=== PATIENT | female | born 1985 | race Caucasian/White ===

== ENCOUNTER 2016-10-20 00:47 | Inpatient (IN) | payer OTHER ==
[~2016-10-20] VITALS: Ht 162.6 cm; Wt 107.0 kg
[~2016-10-20 00:47] MED LIST: ACET30TA PO; DESOTAB2 PO; DIPH25TA24 PO; IBUP1CAP9 PO; SERT-234 PO
[2016-10-20] MEDS ORDERED: OPTIRAY 320 IV PRN (01:15)
[2016-10-20 01:26] LABS: BASO % 0.4 %; BASO ABS # 0.04 K/uL (0-0.2); COMPLETE YES; EOS % 1.7 %; HEMATOCRIT 38.9 % (37-47); IG% 0.1 %; LYMPH % 36.4 %; LYMPH ABS # 3.74 K/uL (1.2-3.4); MEAN CELL VOLUME 84.6 fL (80-100); MEAN CORPUSCULAR HEMOGLOBIN 29.1 pg (25-34); MEAN CORPUSCULAR HGB CONC 34.4 g/dl (32-36); MEAN PLATELET VOLUME 9.8 fL (7.4-10.4); MONO % 9.4 %; PLATELET COUNT 308 K/uL (130-400); WHITE BLOOD COUNT 10.28 K/uL (4.8-10.8)
[2016-10-20 01:41] LABS: INR 0.9 (0.9-1.1)
[2016-10-20 01:44] LABS: ALT/SGPT 24 U/L (12-78); AST/SGOT 15 U/L (15-37); BLOOD UREA NITROGEN 8 mg/dl (7-18); BUN/CREATININE RATIO 9.1 (10-20); CALCIUM 8.2 mg/dl (8.5-10.1); CARBON DIOXIDE 21 mmol/L (21-32); CHLORIDE 110 mmol/L (98-107); CREATININE 0.85 mg/dl (0.60-1.20); GLUCOSE 101 mg/dl (70-99); POTASSIUM 3.4 mmol/L (3.5-5.1); SODIUM 143 mmol/L (136-145)
[2016-10-20 01:46] LABS: PREG INTERNAL NEGATIVE QC NEG CLEAR BACKGROUND; PREG INTERNAL POSITIVE QC POS CONTROL LINE
[2016-10-20 01:56] LABS: ALKALINE PHOSPHATASE 90 U/L (45-117)
--- NOTE | 2016-10-20 02:14 | EMERGENCY ROOM VISIT NOTE ---
History First contact with patient: 00:54 Chief Complaint: CHEST PAIN Stated Complaint: LFT SIDE CHEST PAIN,SHOULDER AND JAW PAIN Nursing Triage Summary: Patient reports "I felt like something was stuck in my chest yesterday and I had pain in my left arm today and my jaw. It's gotten much worse in the past hour." Patient is on control, was recently on a three hour train ride, Patient has 9/10 chest pain radiating to left arm and jaw. Patient rr rapid and breaths shallow. History of Present Illness The patient is a 30 year old female who presents to the Emergency Room with complaints of chest pain which began one day ago. The patient states that she felt like something was "stuck in her chest." She initially thought it may be due to indigestion but states the symptoms have worsened. She is having difficulty taking a deep breath. She states that she takes control pills. Prior to the onset of symptoms, she had a train ride to [facility]. She states that the symptoms worsened today after taking the train home. She denies any history or family history of blood clots or clotting disorders. She reports a history of PVCs but denies any other cardiac history. She states that she has had palpitations which feel worse than her typical PVCs. She denies any nausea, vomiting, abdominal pain, leg pain or swelling. She has not taken any medications for symptoms. Review of Systems A complete 10 point review of systems was reviewed with the patient with pertinent positives and negatives as per history of present illness. All else were negative. Past Medical/Surgical History Medical Problems: (1) Anxiety (2) Endometriosis (3) IBD (inflammatory bowel disease) Social History Smoking Status: Never Smoker Current/Historical Medications Scheduled Desogestrel & Ethinyl Estradio (Reclipsen), 1 TAB PO DAILY Diphenhydramine Hcl (Benadryl Allergy), 25 MG PO DAILY Ibuprofen (Ibuprofen), 600 MG PO DAILY Sertraline (Zoloft), 150 MG PO DAILY Allergies Coded Allergies: Oxycodone (Unverified Allergy, Unknown, ITCHINESS, 10/20/16) Sulfa Antibiotics (Unverified Allergy, Unknown, SWELLING, 10/20/16) Morphine (Unverified Adverse Reaction, Unknown, HYPOTENSION, 10/20/16) Physical Exam Vital Signs Date Time Temp Pulse Resp B/P (MAP) Pulse Ox O2 Delivery O2 Flow Rate FiO2 10/20/16 05:21 84 24 133/104 97 Room Air 10/20/16 04:18 84 18 114/69 98 Room Air 10/20/16 04:09 80 10/20/16 02:20 85 18 143/82 96 Room Air 10/20/16 01:05 36.7 104 34 174/129 100 Room Air 10/20/16 01:01 100 Room Air 10/20/16 01:01 100 Room Air 10/20/16 00:59 101 Physical Exam VITALS: Vitals are noted on the nurse's note and reviewed by myself. Vital signs stable. GENERAL: This is a 30-year-old female, in no acute distress, nondiaphoretic, well-developed well-nourished. SKIN: Capillary reflex less than 2 seconds. HEENT: Normocephalic. PERRLA. EOMI. Nares patent. Mucous membranes moist. Neck is supple without nuchal rigidity. HEART: Regular rate and rhythm without murmurs gallops or rubs. LUNGS: Patient exhibiting shallow breathing. Lungs are clear to auscultation bilaterally without wheezes, rales or rhonchi. No retractions or accessory muscle use. NEURO: Patient was alert and oriented to person place and time. Medical Decision & Procedures ER Provider Diagnostic Interpretation: CTA CHEST: Study is positive for left more than right pulmonary embolism at the division of the left lower lobe and lingula and into segmental and subsegmental branches of the left lower lobe and at the right lower lobe posterior basal segment. Thoracic aorta within limits. Left vertebral artery arises directly from the aortic arch, anatomic variant No pericardial effusion Very small left pleural effusion with associated left base atelectasis Small area of airspace opacity at the tip of the lingula may represent atelectasis, scarring with small infarct not excluded Radiologist: Bobby Hussein MD Laboratory Results 10/20/16 01:10 Red Blood Count 4.60, Mean Corpuscular Volume 84.6, Mean Corpuscular Hemoglobin 29.1, Mean Corpuscular Hemoglobin Concent 34.4, Mean Platelet Volume 9.8, Neutrophils (%) (Auto) 52.0, Lymphocytes (%) (Auto) 36.4, Monocytes (%) (Auto) 9.4, Eosinophils (%) (Auto) 1.7, Basophils (%) (Auto) 0.4, Neutrophils # (Auto) 5.35, Lymphocytes # (Auto) 3.74, Monocytes # (Auto) 0.97, Eosinophils # (Auto) 0.17, Basophils # (Auto) 0.04 10/20/16 01:10 Test 10/20/16 01:10 10/20/16 03:30 White Blood Count 10.28 K/uL (4.8-10.8) Red Blood Count 4.60 M/uL (4.2-5.4) Hemoglobin 13.4 g/dL (12.0-16.0) Hematocrit 38.9 % (37-47) Mean Corpuscular Volume 84.6 fL (80-100) Mean Corpuscular Hemoglobin 29.1 pg (25-34) Mean Corpuscular Hemoglobin Concent 34.4 g/dl (32-36) Platelet Count 308 K/uL (130-400) Mean Platelet Volume 9.8 fL (7.4-10.4) Neutrophils (%) (Auto) 52.0 % Lymphocytes (%) (Auto) 36.4 % Monocytes (%) (Auto) 9.4 % Eosinophils (%) (Auto) 1.7 % Basophils (%) (Auto) 0.4 % Neutrophils # (Auto) 5.35 K/uL (1.4-6.5) Lymphocytes # (Auto) 3.74 K/uL (1.2-3.4) Monocytes # (Auto) 0.97 K/uL (0.11-0.59) Eosinophils # (Auto) 0.17 K/uL (0-0.5) Basophils # (Auto) 0.04 K/uL (0-0.2) RDW Standard Deviation 40.4 fL (36.4-46.3) RDW Coefficient of Variation 13.1 % (11.5-14.5) Immature Granulocyte % (Auto) 0.1 % Immature Granulocyte # (Auto) 0.01 K/uL (0.00-0.02) Prothrombin Time 10.0 SECONDS (9.0-12.0) Prothromb Time International Ratio 0.9 (0.9-1.1) Activated Partial Thromboplast Time 26.8 SECONDS (21.0-31.0) Partial Thromboplastin Ratio 1.0 Anion Gap 12.0 mmol/L (3-11) Est Creatinine Clear Calc Drug Dose 120.2 ml/min Estimated GFR () 105.1 Estimated GFR (Non- 90.7 BUN/Creatinine Ratio 9.1 (10-20) Calcium Level 8.2 mg/dl (8.5-10.1) Total Bilirubin 0.4 mg/dl (0.2-1) Direct Bilirubin 0.1 mg/dl (0-0.2) Aspartate Amino Transf (AST/SGOT) 15 U/L (15-37) Alanine Aminotransferase (ALT/SGPT) 24 U/L (12-78) Alkaline Phosphatase 90 U/L (45-117) Troponin I < 0.015 ng/ml (0-0.045) Total Protein 7.8 gm/dl (6.4-8.2) Albumin 3.5 gm/dl (3.4-5.0) Thyroid Stimulating Hormone (TSH) 13.000 uIu/ml (0.300-4.500) Human Chorionic Gonadotropin, Qual NEG (NEG) Medications Administered Medications (Trade) Dose Ordered Sig/Mayte Route Start Time Stop Time Status Last Admin Dose Admin Heparin Sodium/ Dextrose 1 ea NOW STAT N/A 10/20/16 02:54 10/20/16 02:56 DC 10/20/16 02:54 1 EA Fentanyl Citrate (Fentanyl Inj) 50 mcg NOW STAT IV 10/20/16 03:02 10/20/16 03:03 DC 10/20/16 03:08 50 MCG Ondansetron HCl (Zofran Inj) 4 mg NOW STAT IV 10/20/16 03:32 10/20/16 03:33 DC 10/20/16 03:37 4 MG Heparin Sodium/ Dextrose (Heparin 25,000 Unit/500ml D5W) 25,000 unit STK-MED ONCE .ROUTE 10/20/16 03:34 10/20/16 03:35 DC 10/20/16 03:40 25,000 UNIT Heparin Sodium (Porcine) (Heparin Sq 5000 Unit/0.5ml) 10,000 unit STK-MED ONCE .ROUTE 10/20/16 03:34 10/20/16 03:35 DC 10/20/16 03:38 6,000 UNIT Hydromorphone HCl (Dilaudid Inj) 1 mg Q4H PRN IV 10/20/16 04:45 11/03/16 04:44 10/20/16 05:20 1 MG ECG Rate (beats per minute): 102 Rhythm: sinus tachycardia Findings: no acute ischemic change, no ectopy, other ED Course The patient was evaluated as above. Labs were drawn and IV access was obtained. CT of the chest for PE was performed and read by yolanda as above. Patient was reevaluated and findings were discussed. Hypercoagulability panel was drawn. Heparin bolus and drip was started. Case was discussed with the [facility] hospitalist, Dr. Cabral. He agreed to evaluate the patient for admission. Medical Decision Differential diagnosis includes acute coronary syndrome, pulmonary embolism, pneumothorax, pericarditis, myocarditis, endocarditis, anxiety, musculoskeletal pain, GERD, costochondritis, pneumonia, among others. The patient is a 30-year-old female who presents today complaining of chest pain and shortness of breath. Labs revealed no leukocytosis, anemia or concerning electrolyte abnormalities. TSH is elevated. Troponin was not elevated. Due to risk factors and concern regarding symptoms, CT of the chest for PE was ordered without checking a d-dimer. CT showed bilateral segmental and subsegmental pulmonary emboli. On my initial evaluation, the patient was tachycardic and tachypnea. This did improve. The patient was given IV heparin. She was given fentanyl for pain and Zofran for nausea. Case was discussed with the [facility] Hospitalist for admission. Hypercoagulable workup was ordered prior to heparin administration. Venous ultrasound of the legs was ordered and is pending. The patient's case was reviewed with Dr. Tam, ED attending physician, who agreed with my assessment and treatment plan. Medication reconciliation: I attest that I have personally reviewed the patient 's current medication list. Blood pressure screening: Patient was found to have an elevated blood pressure and was referred to their primary care provider for recheck and further treatment. Impression Primary Impression: Bilateral pulmonary embolism Critical Care I have personally spent greater than 30 minutes of critical care time in the direct management of this patient. This includes bedside care, interpretation of diagnostic studies, and testing, discussion with consultants, patient, and family members, and other required patient management activities. This 30 minutes is in excess of all separately billable procedures. Departure Information Referrals Isabela Gilmore (PCP) Patient Instructions My [facility]
[2016-10-20] MEDS ORDERED: FENTANYL CITRATE INJ 50 MCG/1 ML 2 ML VIAL IV STA (03:02)
[2016-10-20] MEDS ORDERED: DIPH1TAB87 PO (03:09)
[2016-10-20] MEDS ORDERED: ONDANSETRON INJ 2 MG/ML 2 ML VIAL IV STA (03:32)
[2016-10-20] MEDS ORDERED: HEPARIN SOD 5000 UNIT/0.5 ML CARP ONE (03:34)
[2016-10-20] MEDS ORDERED: HEPARIN 25000 UNIT/500 ML D5W ONE (03:34)
[2016-10-20] MEDS ORDERED: ONDANSETRON INJ 2 MG/ML 2 ML VIAL IV PRN (04:30)
[2016-10-20] MEDS ORDERED: ACETAMINOPHEN 325 MG TAB PO PRN (04:30)
[2016-10-20] MEDS ORDERED: POLYETHYLENE (MIRALAX) 17 GM PACK PO PRN (04:30)
[2016-10-20] MEDS ORDERED: MAGNESIUM HYDROXIDE SUSP 30 ML UDC PO PRN (04:30)
[2016-10-20] MEDS ORDERED: ALUMINUM/MAGNESIUM/SIMETH (MAALOX MAX) 30 ML UDC PO PRN (04:30)
--- NOTE | 2016-10-20 05:05 | History and Physical ---
History & Physical Date & Time of Service: Oct 20, 2016 at 04:39 Chief Complaint: Lft Side Chest Pain,Shoulder And Jaw Pain Primary Care Physician: Isabela Gilmore History of Present Illness Source: patient, family 30 year old female with history of OCP-use, anxiety, endometriosis, and IBD, presents today with 1 day of chest pain. The patient notes that 2 days ago, she travelled to [facility] to visit her . She spent 2 hours driving followed by 2 hours on the train. She denies getting up or taking breaks. She then drove home the whole way. She notes upon her return that she started having progressively worsening left sided chest pain, described as stabbing 7/10 in severity. The pain did not radiate into the back. She states that it is very painful to take deep breaths in. She denies wheezing or coughing. She states "I have PVCs" and that normally she does not get palpitations or pain associated with them but today she is. She denies lightheadedness or dizziness. She does take OCP (Reciplsen) due to her endometriosis. She denies any recent immobility or orthopedic surgery. She denies any history of recurrent miscarriages either in herself or her family. She denies calf pain /tenderness or swelling. She denies fevers, chills or sweats. In the ED, she was diagnosed with bilateral subsegmental PEs. She was started on Heparin infusion and Fentanyl for pain control. She states that her pain is improved to a 5/10 currently Social History Smoking Status: Never Smoker Smokeless Tobacco Use: No Alcohol Use: none Drug Use: none Marital Status: Housing status: lives alone Occupational Status: employed Multi-Drug Resistant Organisms History of MDRO: No Allergies Coded Allergies: Oxycodone (Unverified Allergy, Unknown, ITCHINESS, 10/20/16) Sulfa Antibiotics (Unverified Allergy, Unknown, SWELLING, 10/20/16) Morphine (Unverified Adverse Reaction, Unknown, HYPOTENSION, 10/20/16) Home Medications Scheduled Apixaban (Eliquis), 10 MG PO BID Apixaban (Eliquis), 5 MG PO BID Diphenhydramine Hcl (Benadryl Allergy), 25 MG PO DAILY Sertraline (Zoloft), 150 MG PO DAILY Scheduled PRN Hydrocodone/Acetaminophen 5MG/325MG ([place] 5MG/325MG), 1 TABLET PO Q6H PRN for Pain Ketorolac Tromethamine (Toradol), 10 MG PO Q6H PRN for Pain Review of Systems A 10 point review of systems was negative unless stated above. Physical Exam Vital Signs Date Time Temp Pulse Resp B/P (MAP) Pulse Ox O2 Delivery O2 Flow Rate FiO2 10/20/16 04:18 84 18 114/69 98 Room Air 10/20/16 04:09 80 10/20/16 02:20 85 18 143/82 96 Room Air 10/20/16 01:05 36.7 104 34 174/129 100 Room Air 10/20/16 01:01 100 Room Air 10/20/16 01:01 100 Room Air 10/20/16 00:59 101 General Appearance: WD/WN, + mild distress Head: normocephalic, atraumatic Eyes: normal inspection, EOMI ENT: hearing grossly normal, pharynx normal Neck: supple, no adenopathy, no JVD Respiratory/Chest: lungs clear, no respiratory distress Cardiovascular: regular rate, rhythm, no gallop, no murmur, + tachycardia Abdomen/GI: normal bowel sounds, non tender, soft Back: no CVA tenderness, no muscle spasm Extremities/Musculoskelatal: no calf tenderness, no pedal edema Neurologic/Psych: alert, normal mood/affect, oriented x 3 Skin: normal color, warm/dry, no rash Lymphatic: no adenopathy Diagnostics Laboratory Results Results Past 24 Hours Test 10/20/16 01:10 10/20/16 03:30 Range/Units White Blood Count 10.28 4.8-10.8 K/uL Red Blood Count 4.60 4.2-5.4 M/uL Hemoglobin 13.4 12.0-16.0 g/dL Hematocrit 38.9 37-47 % Mean Corpuscular Volume 84.6 80-100 fL Mean Corpuscular Hemoglobin 29.1 25-34 pg Mean Corpuscular Hemoglobin Concent 34.4 32-36 g/dl Platelet Count 308 130-400 K/uL Mean Platelet Volume 9.8 7.4-10.4 fL Neutrophils (%) (Auto) 52.0 % Lymphocytes (%) (Auto) 36.4 % Monocytes (%) (Auto) 9.4 % Eosinophils (%) (Auto) 1.7 % Basophils (%) (Auto) 0.4 % Neutrophils # (Auto) 5.35 1.4-6.5 K/uL Lymphocytes # (Auto) 3.74 1.2-3.4 K/uL Monocytes # (Auto) 0.97 0.11-0.59 K/uL Eosinophils # (Auto) 0.17 0-0.5 K/uL Basophils # (Auto) 0.04 0-0.2 K/uL RDW Standard Deviation 40.4 36.4-46.3 fL RDW Coefficient of Variation 13.1 11.5-14.5 % Immature Granulocyte % (Auto) 0.1 % Immature Granulocyte # (Auto) 0.01 0.00-0.02 K/uL Prothrombin Time 10.0 9.0-12.0 SECONDS Prothromb Time International Ratio 0.9 0.9-1.1 Activated Partial Thromboplast Time 26.8 21.0-31.0 SECONDS Partial Thromboplastin Ratio 1.0 Sodium Level 143 136-145 mmol/L Potassium Level 3.4 3.5-5.1 mmol/L Chloride Level 110 98-107 mmol/L Carbon Dioxide Level 21 21-32 mmol/L Anion Gap 12.0 3-11 mmol/L Blood Urea Nitrogen 8 7-18 mg/dl Creatinine 0.85 0.60-1.20 mg/dl Est Creatinine Clear Calc Drug Dose 120.2 ml/min Estimated GFR () 105.1 Estimated GFR (Non- 90.7 BUN/Creatinine Ratio 9.1 10-20 Random Glucose 101 70-99 mg/dl Calcium Level 8.2 8.5-10.1 mg/dl Total Bilirubin 0.4 0.2-1 mg/dl Direct Bilirubin 0.1 0-0.2 mg/dl Aspartate Amino Transf (AST/SGOT) 15 15-37 U/L Alanine Aminotransferase (ALT/SGPT) 24 12-78 U/L Alkaline Phosphatase 90 45-117 U/L Troponin I < 0.015 0-0.045 ng/ml Total Protein 7.8 6.4-8.2 gm/dl Albumin 3.5 3.4-5.0 gm/dl Thyroid Stimulating Hormone (TSH) 13.000 0.300-4.500 uIu/ml Human Chorionic Gonadotropin, Qual NEG NEG Impression Assessment and Plan (1) Bilateral pulmonary embolism (2) Endometriosis (3) Anxiety (4) IBD (inflammatory bowel disease) Bilateral PE - Risk factors: Immobility (travel > 6 hours), OCP use - Patient currently on heparin infusion - Hypercoagulability work-up pending - Venous Dopplers are pending - Hold OCP permanently - Pain: Dilaudid 1 mg q 4 hours PRN for pain Endometriosis - Ibuprofen 600 mg daily - Hold OCP; consider belt dresser consultation for additional recommendations on alternative contraception choices Anxiety - Continue Sertraline IBD - Not on any current treatments - Monitor and treat supportively - Patient can eat regular diet as tolerated\\ - Will keep on IVF NSS + 20KCl 100 ml/hr as patient has noted poor appetite and intake at outset of symptoms. Can D/C if eating normally. DVT prophylaxis - SCD - Heparin infusion, bridge to Coumadin vs NOAC per primary team. Code Status - Level I Disposition - Med/Surg Level of Care Med/Surg Resuscitation Status FULL RESUSCITATION VTE Prophylaxis VTE Risk Assessment Done? Y/N: Yes Risk Level: Moderate Given or contraindicated: Unfractionated heparin SQ Assessment and Plan Attending Addendum: I have physically seen and examined this patient, have directed their medical care, have supervised the medical residents activities, and agree with the H&P as noted above, with the following changes: NONE
[2016-10-20] MEDS ORDERED: HEPARIN 25,000 UNIT/500ML D5W 500 ML IV PRN (05:15)
[2016-10-20] MEDS: HYDROmorphone INJ 1 MG/ML SYR IV PRN ×4 (05:20→19:36)
[2016-10-20 06:10] VITALS: O2SAT 94
[2016-10-20] MEDS ORDERED: SODIUM CHLOR 0.45% + 20MEQ KCL 1,000 ML IV SCH (06:15)
[2016-10-20 06:16] VITALS: BP 114/68; PULSE 98; TEMP 36.6; Ht 162.6 cm; Wt 107.0 kg
--- NOTE | 2016-10-20 06:22 | DIAGNOSTIC IMAGING REPORT ---
BILATERAL LOWER EXTREMITY VENOUS DOPPLER HISTORY: Pain. Dyspnea. pulmonary embolism COMPARISON STUDY: None. FINDINGS: There is normal compressibility, flow, and augmentation within the bilateral lower extremity deep venous systems. IMPRESSION: No DVT within the right or left lower extremity. Electronically signed by: Ayo Gomes M.D. 10/20/2016 6:21 AM Dictated Date/Time: 10/20/2016 6:20 AM
--- NOTE | 2016-10-20 07:06 | EMERGENCY ROOM VISIT NOTE ---
ED Visit Note First contact with patient: 00:54 I have personally evaluated and examined this patient. I agree with assessment and plan of Kayla Betancourt PA-C. 30 yr old female with shob/pleuritic chest pain after taking train trip to [place]. She is on blood thinners. Mild tachy and symptomatic I feel CT PE study without dimer reasonable/necessary. CT confirms bilateral PEs. Given symptoms will need to come in for anti-coagulation and monitoring.
--- NOTE | 2016-10-20 07:18 | DIAGNOSTIC IMAGING REPORT ---
CT ANGIOGRAM OF THE CHEST CLINICAL HISTORY: Dyspnea. Atypical chest pain. COMPARISON STUDY: No priors. TECHNIQUE: Following the IV administration of 82 cc of Optiray 320, CT angiogram of the chest was performed from the upper abdomen to the thoracic inlet utilizing the pulmonary embolus protocol. Images are reviewed in the axial, sagittal, and coronal planes. 3-D MIPS images are created and assessed. IV contrast was administered without complication. CT DOSE: 394.84 mGy.cm FINDINGS: Thyroid: Imaged portions of the thyroid gland are normal in size and attenuation. Thoracic aorta: The thoracic aorta is normal in caliber and demonstrates 4-vessel variant arch anatomy. No dissection is seen. Pulmonary vasculature: The pulmonary trunk is normal in caliber. There are filling defects within the left lower lobe pulmonary artery. This extends into segmental and subsegmental branches and is consistent with pulmonary embolus. Pulmonary emboli are also seen within the lingular branches. There are segmental and subsegmental pulmonary emboli identified in the right lower lobe pulmonary arteries. Heart: The heart is normal in size and configuration, and without pericardial effusion. Lungs and pleural spaces: There is a small left pleural effusion with subpleural left basilar opacities. The right lung appears clear. The trachea and central airways are clear. Mediastinum: There is no mediastinal lymphadenopathy. Ana: Clear. Axillae: There is no axillary lymphadenopathy. Upper abdomen: Partially visualized upper abdominal viscera is within normal limits. Skeletal structures: No lytic or blastic bony lesions are seen. IMPRESSION: 1. Bilateral pulmonary emboli as above. 2. Small left pleural effusion. 3. There are subpleural opacities at the left lung base, likely representing small infarcts versus atelectasis. Electronically signed by: Raudel Larkin M.D. 10/20/2016 7:16 AM Dictated Date/Time: 10/20/2016 7:12 AM
[2016-10-20 07:34] VITALS: BP 115/81; PULSE 64; TEMP 36.8; O2SAT 94
[2016-10-20] MEDS: SERTRALINE HCL 100 MG TAB PO SCH (07:47)
[2016-10-20] MEDS: IBUPROFEN 600 MG TAB PO SCH (07:47)
--- NOTE | 2016-10-20 10:38 | Hospitalist Progress Note ---
Hospitalist Progress Note Date of Service Oct 20, 2016. (Linda Blevins PA-C) Subjective Pt evaluation today including: conversation w/ patient, physical exam, chart review, lab review, review of studies Pain: Left chest PO Intake: Fair The patient was seen and examined this morning. Pt reports her pain in much improved compared to what it was earlier today. She is now getting dilaudid for pain, she does admit to feeling slightly out of it. Pt has a longstanding hx of using pain medication for endometriosis. She typically uses ibuprophen 600 mg and layers with aspirin for pain. Constitutional: No fever, No chills, No sweats, No fatigue Eyes: No diplopia ENT: No nasal symptoms, No trouble swallowing Respiratory: + shortness of breath, + problem reported (+ pain with deep breaths, on 2 L NC), No cough, No sputum Cardiovascular: + chest pain (left chest ), + palpitations Abdomen: + diarrhea, + constipation, + problem reported (Hx of IBS), No pain , No nausea, No vomiting Musculoskeletal: No joint pain, No muscle pain, No swelling Female : + problem reported (Hx of endometriosis on OCP), No dysuria, No hematuria, No incontinence Neurologic: No weakness, No numbness/tingling Endo: No fatigue Skin: No rash, No itch (Linda Blevins PA-C) Objective Vital Signs Date Time Temp Pulse Resp B/P (MAP) Pulse Ox O2 Delivery O2 Flow Rate FiO2 10/20/16 08:00 Room Air 10/20/16 07:34 36.8 64 18 115/81 (92) 94 Room Air 10/20/16 06:16 36.6 98 18 114/68 Room Air 10/20/16 06:10 77 26 109/78 94 Room Air 10/20/16 05:54 81 10/20/16 05:21 84 24 133/104 97 Room Air 10/20/16 04:18 84 18 114/69 98 Room Air 10/20/16 04:09 80 10/20/16 02:20 85 18 143/82 96 Room Air 10/20/16 01:05 36.7 104 34 174/129 100 Room Air 10/20/16 01:01 100 Room Air 10/20/16 01:01 100 Room Air 10/20/16 00:59 101 (Linda Blevins PA-C) Physical Exam General Appearance: WD/WN, + mild distress, + obese Eyes: PERRL, EOMI ENT: hearing grossly normal, pharynx normal Neck: supple, no JVD Respiratory/Chest: chest non-tender, + pertinent finding (Difficulty with deep breaths, diminished ) Cardiovascular: no gallop, no murmur, + tachycardia Abdomen: normal bowel sounds, non tender, soft, no organomegaly, + pertinent finding Extremities: non-tender, no pedal edema, no calf tenderness Neurologic/Psychiatric: no motor/sensory deficits, alert, oriented x 3 Skin: normal color, warm/dry (Linda Blevins PA-C) Laboratory Results Last 24 Hours Test 10/20/16 01:10 10/20/16 03:30 10/20/16 09:55 White Blood Count 10.28 K/uL Red Blood Count 4.60 M/uL Hemoglobin 13.4 g/dL Hematocrit 38.9 % Mean Corpuscular Volume 84.6 fL Mean Corpuscular Hemoglobin 29.1 pg Mean Corpuscular Hemoglobin Concent 34.4 g/dl Platelet Count 308 K/uL Mean Platelet Volume 9.8 fL Neutrophils (%) (Auto) 52.0 % Lymphocytes (%) (Auto) 36.4 % Monocytes (%) (Auto) 9.4 % Eosinophils (%) (Auto) 1.7 % Basophils (%) (Auto) 0.4 % Neutrophils # (Auto) 5.35 K/uL Lymphocytes # (Auto) 3.74 K/uL Monocytes # (Auto) 0.97 K/uL Eosinophils # (Auto) 0.17 K/uL Basophils # (Auto) 0.04 K/uL RDW Standard Deviation 40.4 fL RDW Coefficient of Variation 13.1 % Immature Granulocyte % (Auto) 0.1 % Immature Granulocyte # (Auto) 0.01 K/uL Prothrombin Time 10.0 SECONDS Prothromb Time International Ratio 0.9 Activated Partial Thromboplast Time 26.8 SECONDS Partial Thromboplastin Ratio 1.0 Sodium Level 143 mmol/L Potassium Level 3.4 mmol/L Chloride Level 110 mmol/L Carbon Dioxide Level 21 mmol/L Anion Gap 12.0 mmol/L Blood Urea Nitrogen 8 mg/dl Creatinine 0.85 mg/dl Est Creatinine Clear Calc Drug Dose 120.2 ml/min Estimated GFR () 105.1 Estimated GFR (Non- 90.7 BUN/Creatinine Ratio 9.1 Random Glucose 101 mg/dl Calcium Level 8.2 mg/dl Total Bilirubin 0.4 mg/dl Direct Bilirubin 0.1 mg/dl Aspartate Amino Transf (AST/SGOT) 15 U/L Alanine Aminotransferase (ALT/SGPT) 24 U/L Alkaline Phosphatase 90 U/L Troponin I < 0.015 ng/ml Total Protein 7.8 gm/dl Albumin 3.5 gm/dl Thyroid Stimulating Hormone (TSH) 13.000 uIu/ml Human Chorionic Gonadotropin, Qual NEG (Linda Blevins, MARYURI) Assessment and Plan This is a 30 yo F with PMHx of endometriosis s/p [address] Mary Hernandez, IBS, anxiety and depression who presented with shortness of breath and chest pain, found to have bilateral LLL and RLL pulmonary emboli. Bilateral PE - Risk factors: Immobility (travel > 6 hours) and OCP - Currently taking reclipsen (estradiol based) and has been held. Will need stopped indefinitely with a provoked DVT. - Patient currently on heparin infusion- Spoke with Dr. Guerrero --> pt's BMI is elevated, as far as NOAC she would recommend Eliquis 10 mg BID x 10 days followed by 5 mg BID because this has less risk of worsening menometrorrhagia, especially with the pts hx of endometriosis. - Hypercoagulability work-up pending - Venous Dopplers are pending negative. - Pain: Decrease dilaudid to 0.5 mg q 3 hours PRN for pain Endometriosis - Ibuprofen 600 mg daily - Hold OCP; Called Dr. Sara Hernandez to update. Placed vaccine specialist consultation for additional recommendations on alternative contraception choices. Per WHO: should not be on any sort of estrogen based oral contraceptive indefinitely with provoked DVT. 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 Pt denies having IUD before. Depression/Anxiety - Continue Sertraline 150 mg daily IBS - Not on any current treatments, currently stable - Patient can eat regular diet as tolerated - Stopped IVFs as pt appetite improving. DVT ppx: SCD, Heparin infusion Code Status - Level I Disposition - Med/Surg (Linda Blevins PA-C) Attending Attestation & Admission Note: Pt seen/examined, chart reviewed, and care plan d/w MARIELLA Blevins. I agree w/ the ryan components of her documentation. Pt w/ ongoing pleuritic chest discomforts but denies dyspnea; no hemoptysis. Denies personal or family h/o DVT or PE. VSS O2 sats nl in RA gen - mildly sleepy due to pain meds, occasionally she winces in pain neck - no JVD heart - RRR lungs - decreased BS bases abd - soft ext - no edema TSH 13 A/P: 1. b/l pulmonary emboli - PROVOKED - due to immobility from travel and OCP usage. 2. abnormal TSH 3. question of pulmonary infarcts 4. pleuritic pain due to #1 and #3 repeat TSH, free T4 in am appreciate living nurse consultation and recs stop heparin change to eliquis BID await hypercoag w/u but this will not change our current management can d/c home once pain control is sufficient Blaine LIZ MD (Yinka Liz MD)
[2016-10-20 10:39] LABS: PARTIAL THROMBOPLASTIN RATIO 2.5
[2016-10-20] MEDS ORDERED: MedroxyPROGESTERone ACETATE 150 MG/ML 1 ML VIAL IM ONE (14:30)
[2016-10-20 15:15] VITALS: BP 120/82; PULSE 67; TEMP 36.4; O2SAT 96
[2016-10-20] MEDS ORDERED: [UNRECOGNIZED DRUG - REMARK] ONE (17:45)
[2016-10-20] MEDS: APIXABAN 2.5 MG TAB PO SCH (17:48)
[2016-10-20 18:49] VITALS: BP 110/74; PULSE 82; TEMP 36.7; O2SAT 94
--- NOTE | 2016-10-20 22:51 | GYNECOLOGICAL CONSULTATION ---
DATE OF CONSULTATION: 10/20/2016 HISTORY OF PRESENT ILLNESS: Phil Mike is a 30-year-old G0 who has now had 5 laparoscopic resections and fulgurations of endometriosis. After each of the surgical procedures, the patient has achieved anywhere from 1 to a few years of pain relief. Before her endometriotic pain was so bad that she was requiring narcotics and then her next surgery would occur. Her most recent laparoscopy for endometriosis was in 04/2012. Following this procedure, she was placed on oral contraceptives with estrogen and progesterone in order to suppress her cycle and prevent or slow recurrence of her endometriosis pain. The patient is noted to have traveled to [place] where her is currently working on his post-up. She spent several hours relatively immobile during travel by car and train. Upon return home, the patient began experiencing progressively worsening chest pain which she thought was also severe gastrointestinal pain, dyspnea on inspiration, pleuritic type chest pain with inspiration, and PVCs. She denied lightheadedness or dizziness. The patient presented to our Emergency Department where she was diagnosed with bilateral subsegmental pulmonary emboli. She is now admitted to the medicine service and under their care has been receiving heparin for the PEs as well as narcotic infusion for pain control. The patient's pain at the time of my visit is rated a 4/10. She was noted to be sleeping when I arrived, however, was able to be roused and after her conversation with me is when she rated the pain 4/10. She was noted to be able to speak; however, several times during either trying to sit more upright or speak forcefully, she did wince to catch her breath and had to wait before beginning to speak again. She is accompanied by her today who confirms the above given history. PAST MEDICAL HISTORY: Noted for anxiety, chronic interstitial cystitis, chronic sinusitis, IBS with recurring diarrhea, a deviated nasal septum, the aforementioned endometriosis, depression and anemia. The patient also has a history of anorexia nervosa, although this is not currently active. PAST SURGICAL HISTORY: Includes cystoscopy and laparoscopy x5, most recently 04/2016. FAMILY HISTORY: Negative for any clotting disorders, recurrent miscarriages, autoimmune disorders. SOCIAL HISTORY: , , nonsmoking female. Denies use of recreational drugs or alcohol. ALLERGIES: INCLUDE SULFA DRUGS. CURRENT MEDICATIONS: Include hydroxyzine, Tylenol No. 3 as needed, Zantac daily, Reclipsen combination oral contraceptive, and Zoloft tabs 150 mg daily. PHYSICAL EXAMINATION: VITAL SIGNS: Reviewed and noted to be primarily within normal limits with a temperature of 36.7, pulse ranging 80s-100, respiratory rate 18, blood pressure ranging 114-174/69-129, pulse ox 96-100% on room air. GENERAL: She was initially comfortably asleep. When I entered the room, she was rousable and was alert, oriented and fluent, although she remained somewhat drowsy due to the narcotics she had received for pain. HEENT: She is normocephalic. She has grossly normal hearing. NECK: Supple without lymphadenopathy. CHEST: Her chest has equal movement bilaterally and she does not appear to be in any respiratory distress. Her speech is fluid without dyspnea, although as previously stated when the patient attempts to sit more upright or rarely when trying to speak forcefully, she does generate what seems to be a flash of pleuritic pain that causes her to catch her breath, then pause briefly before continuing to speak. ABDOMEN: Soft and nontender. GENITOURINARY: Deferred at this time. SKIN: Normal color, warm and dry. LABORATORY DATA: Laboratory results are reviewed and are notable for a white count of 10.28, hemoglobin of 13.4, platelets of 308. Coag studies which appeared to be within normal limits. Creatinine of 0.85. AST and ALT within normal limits. TSH which is markedly elevated at 13. Negative hCG. ASSESSMENT AND PLAN: This is a 30-year-old G0 with known severe endometriosis for which she was being treated with combination oral contraceptives, now having bilateral pulmonary emboli. Additionally, the patient is noted to have a thyroid stimulating hormone that is markedly elevated at 13. For her bilateral pulmonary emboli, this was likely related to risk factors including prolonged immobility with travel and oral contraceptive pill use. Management for this is per the primary medical team and currently involved heparin infusion. I agree with holding her combination oral contraceptive and I have informed the patient this morning that she will no longer be considered a candidate for treatment with estrogens, at least at the doses used in oral contraceptive pills. This places the patient in an unfortunate position because endometriosis pain is a significant life-limiting factor for her. She was achieving moderate relief with these pills and is concerned that without them, she will be headed for an inevitable hysterectomy and bilateral salpingo-oophorectomy at a relatively young age. This may indeed be the case, but at the present time we would not want to be doing any kind of surgery as she is anticoagulated and dealing with the acute issues of the pulmonary emboli. After discussion of the patient's options with her today including progesterone-only methods, barrier methods, and/or another course of Lupron, the patient is interested in trying Depo-Provera. I have ordered the patient injection of her first dose of Depo which can be given while she is here in the hospital. She understands not to take the estrogen-containing control pills any further. The plan will be to keep her on the Depo-Provera throughout the 6 months during which she is anticoagulated. After that point, she will need to make a decision whether she is or is not adequately treated vis-a-vis her endometriosis and at the same time whether she wishes to pursue or not. I did discuss with her this morning that the estrogen increase that is seen with is also a risk factor for clots. In addition, a clotting disorder, which we do not know that she has yet, may increase her risk for miscarriages. She will take these things into consideration when deciding whether they wish to start a family by carrying a versus adoption. Note this is a discussion we have had together before and it is not a decision she feels she has fully made yet. For her thyroid stimulating hormone which is significantly elevated, I will defer management to the medical team; however, I would recommend the hypothyroid condition be evaluated and/or treated to bring her to a goal thyroid stimulating hormone of less than 2.5, especially in the case that the patient wishes to pursue . We will sign off the patient's care at this time. Please notify the [facility] team if we can be of any further assistance.
[2016-10-21 00:01] VITALS: BP 122/84; PULSE 69; TEMP 36.6; O2SAT 97
[2016-10-21] MEDS: HYDROmorphone INJ 1 MG/ML SYR IV PRN ×2 (00:21→05:02)
[2016-10-21] MEDS ORDERED: HYDROCODONE/ACETAMOPHEN 5/325MG TAB PO PRN (06:00)
[2016-10-21] MEDS ORDERED: HYDROCODONE/ACETAMINOPHEN 7.5/325MG TAB PO PRN (06:00)
[2016-10-21 06:22] LABS: HEMATOCRIT 37.6 % (37-47); MEAN CELL VOLUME 85.1 fL (80-100); MEAN CORPUSCULAR HEMOGLOBIN 29.2 pg (25-34); MEAN CORPUSCULAR HGB CONC 34.3 g/dl (32-36); PLATELET COUNT 263 K/uL (130-400); RED BLOOD COUNT 4.42 M/uL (4.2-5.4)
[2016-10-21 07:03] LABS: BUN/CREATININE RATIO 12.4 (10-20); CALCIUM 8.1 mg/dl (8.5-10.1); CREATININE 0.65 mg/dl (0.60-1.20); POTASSIUM 3.8 mmol/L (3.5-5.1)
[2016-10-21 07:05] VITALS: BP 110/71; PULSE 64; TEMP 36.6; O2SAT 95
[2016-10-21 07:38] LABS: THYROID STIMULATING HORMONE 5.54 uIu/ml (0.300-4.500)
[2016-10-21] MEDS: APIXABAN 2.5 MG TAB PO SCH ×2 (07:48→19:28)
[2016-10-21] MEDS: SERTRALINE HCL 100 MG TAB PO SCH (07:48)
[2016-10-21] MEDS: IBUPROFEN 600 MG TAB PO SCH (07:48)
[2016-10-21] MEDS ORDERED: KETOROLAC TROMETHAMINE 10 MG TAB PO ONE ×2 (08:45→16:00)
[2016-10-21 14:54] VITALS: BP 136/83; PULSE 77; TEMP 36.7; O2SAT 97
[2016-10-21] MEDS ORDERED: HYDROCODONE/ACETAMI 10/325 TAB PO PRN (15:30)
[2016-10-21 17:56] VITALS: O2SAT 98
[2016-10-21] MEDS ORDERED: HYDR-3983 PO (18:38)
[2016-10-21] MEDS ORDERED: KETO10TA PO (18:38)
[2016-10-21] MEDS ORDERED: APIX1TAB3 PO ×2 (18:38)
[2016-10-21] MEDS ORDERED: KETOROLAC TROMETHAMINE 10 MG TAB PO SCH (18:45)
[2016-10-21] MEDS ORDERED: KETOROLAC TROMETHAMINE 10 MG TAB PO PRN (18:45)
[2016-10-21] MEDS ORDERED: HYDR-5688 PO (18:47)
[2016-10-21 19:04] VITALS: BP 136/83; PULSE 77; TEMP 36.7; O2SAT 98
--- NOTE | 2016-10-21 19:11 | Discharge Instructions ---
Discharge Instructions Date of Service Oct 21, 2016. Admission Reason for Admission: Bilateral Pulmonary Embolism Discharge Discharge Diagnosis / Problem: (1) Bilateral pulmonary embolism VTE Date & Time Date of VTE Diagnosis: Oct 20, 2016 Time of VTE Diagnosis: 01:00 Discharge Goals Goal(s): Decrease discomfort, Improve function, Increase independence, Improve disease control, Learn about illness, Diagnostic testing, Therapeutic intervention Activity Recommendations Activity Limitations: as noted below 1. No heavy lifting over 15 pounds for about 5-7 days. 2. Short car rides are OK in town but would NOT drive long distances for the next week. 3. 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 4. Light walks are ok; if you feel short of breath simply stop and rest. 5. Avoid sexual activity for the next week. . Instructions / Follow-Up Instructions / Follow-Up From Dr. Liz - 1. 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 Anticoagulants will thin your blood to help prevent new clots. * You should take her medication exactly as directed. * Never skip a dose. * Never take a double dose. If you miss a dose, take it as soon as you remember. Your Medication regimen is as follows: 1. Starting tomorrow AM, 10/22/16, take Eliquis 10mg twice daily for 9 days. A separate prescription has been provided for the 9-day course. Get this filled tomorrow AM. 2. After the 9-day course is complete, then take Eliquis 5mg twice daily thereafter. Again you have a separate prescription for the 5mg twice daily regimen. You do not need to fill this prescription at this time. You will need to take the Eliquis for at least 6 months. Call your Primary Care doctor if you experience any of the following: * Swelling or Pain in your leg * Sudden, continuous pain deep in a muscle * Pain that worsens when you are active or when you stand still for a long time * Chest Pain * Sudden Shortness of Breath * Rapid or pounding heart beat * Fainting * Dizziness * Cough with blood or bloody sputum * Sweating more than normal * Bruises * Heavy or uncontrolled bleeding * Blood in your urine, stool or vomit * Black or tarry stools Caring for Your Self at Home: * Avoid sitting, standing or lying down for long periods without moving your legs and feet * When you return to traveling by car in a few weeks, stop to get out and move around at least once every 1-2 hours * On long airplane, train or bus rides, get up and move around when possible * If you can't get up, wiggle your toes and tighten your calves to keep your blood moving * use an electric razor rather than a straight (traditional) razor 2. Chest discomfort - * this is due to the pulmonary emboli itself * this pain will gradually improve and then finally resolve over the next week or so * continue the incentive spirometer frequently over the next week * try to use it for a set of 3-5 times and do this 1-2x's each hour 3. Pain medications - * [facility] is providing you a courtesy pack of the following - 1. toradol 10mg x 2 tabs; may take every 6 hours as needed; take with food. Do not take motrin while on the toradol. 2. norco (hydrocodone) 5/325mg for 4 tabs; may take every 6 hours as needed for pain. The norco contains tylenol and thus do not take extra tylenol with this. While on the above medications do not drive and do not drink alcohol. 4. When the courtesy medications run out you have also been provided a separate prescription for the norco 5/325mg tablets. 20 tablets of this has been given to you. You can fill this prescription at the [facility]. 5. Know that the hydrocodone (norco) pain pills WILL constipate you. Be sure to take stool softeners while on them. 6. Your thyroid level (TSH) was mildly abnormal while here. Please have your family doctor recheck this in [address] Hernandez for your endometriosis and depo shots. 8. We will call you if any of your genetic testing for the blood clots was abnormal. 9. See Dr. Asif at [facility] this Thursday. 10. Remain out of work for the remainder of the week. Dr. Asif will tell you when you can return to work. 11. Return to [facility] if: * you have worsening chest discomfort/pain not responding to your pain medications * worsening shortness of breath at rest or with activity * bleeding from your nose, rectum, vagina, urinary tract, etc Current Hospital Diet Patient's current hospital diet: Regular Diet Discharge Diet Recommended Diet: Regular Diet Procedures Procedures Performed: CAT scan of the lungs showing bilateral pulmonary emboli Pending Studies Studies pending at discharge: yes List of pending studies: genetic testing for inherited causes of blood clots Medical Emergencies . Who to Call and When: Medical Emergencies: If at any time you feel your situation is an emergency, please call 911 immediately. . Non-Emergent Contact Non-Emergency issues call your: Primary Care Provider Call Non-Emergent contact if: temperature is above 100.5, your pain is not controlled, your pain is worsening, your pain is unusual for you, your pain is concerning you, you have any medication questions . . "Provider Documentation" section prepared by Yinka Liz. . VTE Core Measure Inpt VTE Proph given/why not?: Other Anticoagulation [place] Drug Monitoring Program Search Results: patient reviewed within database, no issues identified
[2016-10-23 15:57] LABS: ANTITHROMBINIII ACTIVITY** 94 % activity (80-120); B2 GLYCOPROTEIN IGA <9 SAU (<=20); B2 GLYCOPROTEIN IGG <9 SGU (<=20); B2 GLYCOPROTEIN IGM <9 SMU (<=20); LUPUS ANTICOAGULANT** TC36573X Negative (Negative); PROTEIN C ACTIVITY** TC 1777X 70 % (70-180); PROTEIN S ACT(FUNCT)**1779X 63 % (60-140)
--- NOTE | 2016-10-27 15:18 | Discharge Summary ---
Discharge Summary Date of Service Oct 21, 2016. Discharge Summary Admission Date: Oct 20, 2016 at 04:31 Discharge Date: Oct 21, 2016 Discharge Disposition: Home Principal Diagnosis: bilateral pulmonary emboli Problems/Secondary Diagnoses: 1. endometriosis 2. abnormal TSH 3. IBS Procedures: 1. CTA chest: IMPRESSION: 1. Bilateral pulmonary emboli. 2. Small left pleural effusion. 3. There are subpleural opacities at the left lung base, likely representing small infarcts versus atelectasis. 2. 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 Medication Reconciliation New Medications: Apixaban (Eliquis) 5 Mg Tab 5 MG PO BID, #60 TAB 5 Refills Hydrocodone/Acetaminophen 5MG/325MG (M[place]rick 5MG/325MG) Tab 1 TABLET PO Q6H PRN for Pain, #20 TAB 0 Refills Ketorolac Tromethamine (Toradol) 10 Mg Tab 10 MG PO Q6H PRN for Pain, #2 TAB 0 Refills Apixaban (Eliquis) 5 Mg Tab 10 MG PO BID for 9 Days, #36 TAB 0 Refills Continued Medications: Diphenhydramine Hcl (Benadryl Allergy) 25 Mg Tab 25 MG PO DAILY Sertraline (Zoloft) 100 Mg Tab 150 MG PO DAILY, TAB Discontinued Medications: Desogestrel & Ethinyl Estradio (Reclipsen) 1 Tab Tab 1 TAB PO DAILY Ibuprofen (Ibuprofen) 200 Mg Cap 600 MG PO DAILY Discharge Exam Physical Exam: General Appearance: WD/WN, no apparent distress ENT: pharynx normal Neck: no JVD Respiratory/Chest: lungs clear, no respiratory distress, no accessory muscle use Cardiovascular: regular rate, rhythm, no gallop, no murmur, normal peripheral pulses Abdomen / GI: normal bowel sounds, non tender, soft, no organomegaly Extremities: no pedal edema Neurologic/Psychiatric: alert, oriented x 3 Skin: no rash Hospital Course HISTORY OF PRESENT ILLNESS: 30 year old female with history of OCP-use, anxiety, endometriosis, and IBS presented with 1 day of chest pain. The patient noted that 2 days ago she traveled to [facility] to visit her . She spent 2 hours driving followed by 2 hours on the train. She failed to get up and stretch or take breaks during the travel. She then drove home the whole way back to [employer]. She noted upon her return that she started having progressively worsening left sided chest pain, described as stabbing 7/10 in severity. The pain did not radiate into the back. She stated that it was very painful to take deep breaths in. She denied wheezing or coughing. She stated "I have PVCs" and that normally she does not get palpitations or pain associated with them. She denied lightheadedness or dizziness. She reported taking OCPs (Reciplsen) due to her endometriosis. She denied any recent surgery. She denied any history of recurrent miscarriages either in herself or her family. She denied calf pain/tenderness or swelling. In the ED, she was diagnosed with bilateral subsegmental PEs. She was started on Heparin infusion and Fentanyl for pain control. HOSPITAL COURSE: The patient was ultimately transitioned to oral eliquis from the heparin infusion. She will need to take eliquis 10mg twice daily for 10 days, followed by 5mg twice daily for a minimum of 6 months. Her main problem during the stay was that of pleuritic pain, likely due to small pulmonary infarcts. This gradually improved with use of IV/PO NSAIDs and narcotics. She never had an o2 requirement and vitals remained stable while here. A small quantity of hydrocodone was given to her at discharge. She was seen in consult by roll over press operator for her endometriosis. Due to the pulmonary emboli OCPs would be contraindicated moving forward. Thus, Dr. Mary Hernandez recommended depo-provera and the patient received her first dose of such during her hospitalization. The patient had a TSH checked during this hospital stay and was initially 13, improving to 5 later on. She will need a repeat TSH in the future to ensure she does not have early hypothyroidism. Lastly, a hypercoagulable work-up was performed and results of this were pending at time of discharge. Total Time Spent: Greater than 30 minutes This includes examination of the patient, discharge planning, medication reconciliation, and communication with other providers. Discharge Instructions Please refer to the electronic Patient Visit Report (Discharge Instructions) for additional information. Follow-Up see Isabela Gilmore MD - [facility] - within 1 week Additional Copies To Isabela Gilmore; Mary Hernandez MD; [facility]
== END 2016-10-21 19:36 | disposition home or self-care (01) | DRG 176 ==
LOC: C.EDB 00:49 → C.MED 04:31 → ENRESERV 04:51 → C.MED 05:20
PROVIDERS: ADMIT Student in an Organized Health Care Education/Training Program; ATTEND Internal Medicine
DX: I26.99 Other pulmonary embolism without acute cor pulmonale (principal); F41.9 Anxiety disorder, unspecified; K58.9 Irritable bowel syndrome, unspecified; N80.9 Endometriosis, unspecified

== ENCOUNTER 2016-11-05 17:30 | Emergency (ER) | payer OTHER ==
[~2016-11-05] VITALS: Ht 165.1 cm; Wt 106.6 kg
[~2016-11-05 17:30] MED LIST changes: -ACET30TA PO; +APIX1TAB3 PO; -DESOTAB2 PO; +DIPH1TAB PO; -DIPH25TA24 PO; +HYDR-5688 PO; -IBUP1CAP9 PO; +KETO10TA PO
[2016-11-05 17:35] VITALS: TEMP 36.5; Ht 165.1 cm; Wt 106.6 kg
[2016-11-05] MEDS ORDERED: ACET-1256 PO (17:52)
[2016-11-05] MEDS ORDERED: KETOROLAC TROMETHAMINE 30 MG/ML VIAL IV STA (18:21)
[2016-11-05 18:27] VITALS: O2SAT 99
[2016-11-05 18:57] LABS: URINE APPEARANCE CLEAR (CLEAR); URINE BILIRUBIN NEG (NEG); URINE COLOR YELLOW; URINE EPITHELIAL CELL AUTO >30 /lpf (0-5); URINE NITRITE NEG (NEG); URINE PH 6.5 (4.5-7.5); URINE SPECIFIC GRAVITY 1.017 (1.000-1.030); UROBILINOGEN NEG (NEG)
[2016-11-05 19:00] LABS: BASO % 0.5 %; BASO ABS # 0.04 K/uL (0-0.2); COMPLETE YES; EOS % 0.9 %; HEMATOCRIT 41.1 % (37-47); IG% 0.1 %; LYMPH % 47.5 %; LYMPH ABS # 3.54 K/uL (1.2-3.4); MEAN CELL VOLUME 82.5 fL (80-100); MEAN CORPUSCULAR HEMOGLOBIN 27.5 pg (25-34); MEAN CORPUSCULAR HGB CONC 33.3 g/dl (32-36); MEAN PLATELET VOLUME 9.5 fL (7.4-10.4); MONO % 6.3 %; NEUT % 44.7 %; PLATELET COUNT 336 K/uL (130-400); RED BLOOD COUNT 4.98 M/uL (4.2-5.4); WHITE BLOOD COUNT 7.45 K/uL (4.8-10.8)
[2016-11-05 19:08] LABS: MANUAL MICROSCOPIC REQUIRED? NO; REVIEW REQ? NO
[2016-11-05 19:14] LABS: PROTHROMBIN TIME (PATIENT) 10.5 SECONDS (9.0-12.0)
--- NOTE | 2016-11-05 19:21 | DIAGNOSTIC IMAGING REPORT ---
CHEST ONE VIEW PORTABLE CLINICAL HISTORY: Shortness of breath and fever. COMPARISON STUDY: Chest CT October 20, 2016. FINDINGS: Lung volumes are normal. There is no pneumothorax or pleural effusion. Pulmonary vascularity is normal. No airspace opacities are identified. Cardiac size is normal. Mediastinal contours are normal. IMPRESSION: No acute cardiopulmonary findings. Electronically signed by: Gomez Garcia M.D. 11/05/2016 7:19 PM Dictated Date/Time: 11/05/2016 7:19 PM
[2016-11-05 19:30] LABS: ALT/SGPT 49 U/L (12-78); AST/SGOT 32 U/L (15-37); BLOOD UREA NITROGEN 12 mg/dl (7-18); BUN/CREATININE RATIO 14.3 (10-20); CALCIUM 8.9 mg/dl (8.5-10.1); CARBON DIOXIDE 19 mmol/L (21-32); CHLORIDE 111 mmol/L (98-107); CREATININE 0.87 mg/dl (0.60-1.20); GLUCOSE 87 mg/dl (70-99); POTASSIUM 3.5 mmol/L (3.5-5.1); SODIUM 140 mmol/L (136-145)
[2016-11-05 19:35] LABS: ALKALINE PHOSPHATASE 90 U/L (45-117); CKMB/CK RATIO 0.5 (0-3.0)
--- NOTE | 2016-11-05 20:02 | EMERGENCY ROOM VISIT NOTE ---
History Report prepared by Beatrice: Shawanda Bangura Under the Supervision of: Dr. Maxi Longo D.O. First contact with patient: 18:14 Chief Complaint: RESPIRATORY PROBLEMS Stated Complaint: SHORT OF BREATH,CHEST PAIN,LIGHTHEADED Nursing Triage Summary: Pt reports diagnose with PEs bilateral on October 20, admitted for 2 days. Pt now on Elequis. Pt c/o worsening SOB, chest pain. Pt also reports hx of anxiety and panic attacks. hyperventilating in Triage History of Present Illness The patient is a 31 year old female who presents to the Emergency Room with complaints of persistent respiratory problems that began prior to arrival. She currently rates her discomfort as a 6/10 in severity. The patient states that on October 20 she was diagnosed with bilateral pulmonary emboli. She states that she was evaluated in the hospital for two days and placed on Eliquis. The patient denies missing any doses of medication. The patient states that today she was on a walk and after the walk she developed chest pain and shortness of breath. She notes hyperventilating. The patient denies any fever or increased cough. She denies any history of a previous DVT. The patient reports a history of anxiety and panic attacks. Source of History: patient Onset: prior to arrival Position: other (global) Symptom Intensity: 6/10 Quality: other (respiratory problems) Timing: other (persistent) Associated Symptoms: + chest pain, + SOB, No fevers, No cough Review of Systems See HPI for pertinent positives & negatives. A total of 10 systems reviewed and were otherwise negative. Past Medical & Surgical Medical Problems: (1) Anxiety (2) Bronchitis (3) Endometriosis (4) IBD (inflammatory bowel disease) (5) Pneumonia Family History Cancer Gallbladder disease Heart disease Hypertension Social History Smoking Status: Never Smoker Smokeless Tobacco Use: No Alcohol Use: none Drug Use: none Marital Status: Housing Status: lives alone Occupation Status: employed Current/Historical Medications Scheduled Acetaminophen (Tylenol), 1,000 MG PO BID Apixaban (Eliquis), 5 MG PO BID Diphenhydramine Hcl (Benadryl Allergy), 25 MG PO DAILY Sertraline (Zoloft), 150 MG PO DAILY Scheduled PRN Hydrocodone/Acetaminophen 5MG/325MG (Haiku 5MG/325MG), 1 TABLET PO Q6H PRN for Pain Allergies Coded Allergies: Oxycodone (Unverified Allergy, Unknown, ITCHINESS, 10/20/16) Sulfa Antibiotics (Unverified Allergy, Unknown, SWELLING, 10/20/16) Morphine (Unverified Adverse Reaction, Unknown, HYPOTENSION, 10/20/16) Physical Exam Vital Signs Date Time Temp Pulse Resp B/P (MAP) Pulse Ox O2 Delivery O2 Flow Rate FiO2 11/05/16 20:03 70 20 144/89 100 Room Air 11/05/16 18:27 99 Nasal Cannula 2.0 11/05/16 17:57 95 Room Air 11/05/16 17:56 96 11/05/16 17:41 100 Room Air 11/05/16 17:35 36.5 92 26 151/82 97 Room Air Physical Exam CONSTITUTIONAL/VITAL SIGNS: Reviewed / noted above. GENERAL: Slightly anxious appearing. INTEGUMENTARY: Warm, dry, and [place]. HEAD: Normocephalic. EYES: without scleral icterus or trauma. ENT/OROPHARYNX: clear and moist. LYMPHADENOPATHY/NECK: Is supple without lymphadenopathy or meningismus. RESPIRATORY: Lungs clear and equal. CARDIOVASCULAR: Regular rate and rhythm. GI/ABDOMEN: Soft and nontender. No organomegaly or pulsatile mass. No rebound or guarding. Normal bowel sounds. EXTREMITIES: Warm and well perfused. BACK: No CVA tenderness. NEUROLOGICAL: Intact without focal deficits. PSYCHIATRIC: normal affect. MUSCULOSKELETAL: Normally developed with good muscle tone. Medical Decision & Procedures ER Provider Diagnostic Interpretation: X ray results and stated below per my interpretation and radiology interpretation. CHEST ONE VIEW PORTABLE CLINICAL HISTORY: Shortness of breath and fever. COMPARISON STUDY: Chest CT October 20, 2016. FINDINGS: Lung volumes are normal. There is no pneumothorax or pleural effusion. Pulmonary vascularity is normal. No airspace opacities are identified. Cardiac size is normal. Mediastinal contours are normal. IMPRESSION: No acute cardiopulmonary findings. Electronically signed by: Gomez Garcia M.D. 11/05/2016 7:19 PM Dictated Date/Time: 11/05/2016 7:19 PM Laboratory Results 11/05/16 18:45 Red Blood Count 4.98, Mean Corpuscular Volume 82.5, Mean Corpuscular Hemoglobin 27.5, Mean Corpuscular Hemoglobin Concent 33.3, Mean Platelet Volume 9.5, Neutrophils (%) (Auto) 44.7, Lymphocytes (%) (Auto) 47.5, Monocytes (%) (Auto) 6.3, Eosinophils (%) (Auto) 0.9, Basophils (%) (Auto) 0.5, Neutrophils # (Auto) 3.32, Lymphocytes # (Auto) 3.54, Monocytes # (Auto) 0.47, Eosinophils # (Auto) 0.07, Basophils # (Auto) 0.04 11/05/16 18:45 Test 11/05/16 18:39 11/05/16 18:45 Urine Color YELLOW Urine Appearance CLEAR (CLEAR) Urine pH 6.5 (4.5-7.5) Urine Specific [place] 1.017 (1.000-1.030) Urine Protein NEG (NEG) Urine Glucose (UA) NEG (NEG) Urine Ketones NEG (NEG) Urine Occult Blood NEG (NEG) Urine Nitrite NEG (NEG) Urine Bilirubin NEG (NEG) Urine Urobilinogen NEG (NEG) Urine Leukocyte Esterase MODERATE (NEG) Urine WBC (Auto) 10-30 /hpf (0-5) Urine RBC (Auto) 0-4 /hpf (0-4) Urine Hyaline Casts (Auto) 1-5 /lpf (0-5) Urine Epithelial Cells (Auto) >30 /lpf (0-5) Urine Bacteria (Auto) 1+ (NEG) White Blood Count 7.45 K/uL (4.8-10.8) Red Blood Count 4.98 M/uL (4.2-5.4) Hemoglobin 13.7 g/dL (12.0-16.0) Hematocrit 41.1 % (37-47) Mean Corpuscular Volume 82.5 fL (80-100) Mean Corpuscular Hemoglobin 27.5 pg (25-34) Mean Corpuscular Hemoglobin Concent 33.3 g/dl (32-36) Platelet Count 336 K/uL (130-400) Mean Platelet Volume 9.5 fL (7.4-10.4) Neutrophils (%) (Auto) 44.7 % Lymphocytes (%) (Auto) 47.5 % Monocytes (%) (Auto) 6.3 % Eosinophils (%) (Auto) 0.9 % Basophils (%) (Auto) 0.5 % Neutrophils # (Auto) 3.32 K/uL (1.4-6.5) Lymphocytes # (Auto) 3.54 K/uL (1.2-3.4) Monocytes # (Auto) 0.47 K/uL (0.11-0.59) Eosinophils # (Auto) 0.07 K/uL (0-0.5) Basophils # (Auto) 0.04 K/uL (0-0.2) RDW Standard Deviation 39.0 fL (36.4-46.3) RDW Coefficient of Variation 12.9 % (11.5-14.5) Immature Granulocyte % (Auto) 0.1 % Immature Granulocyte # (Auto) 0.01 K/uL (0.00-0.02) Prothrombin Time 10.5 SECONDS (9.0-12.0) Prothromb Time International Ratio 1.0 (0.9-1.1) Activated Partial Thromboplast Time 25.7 SECONDS (21.0-31.0) Partial Thromboplastin Ratio 1.0 D-Dimer 720 ug/L FEU (0-500) Anion Gap 10.0 mmol/L (3-11) Est Creatinine Clear Calc Drug Dose 111.6 ml/min Estimated GFR () 101.4 Estimated GFR (Non- 87.5 BUN/Creatinine Ratio 14.3 (10-20) Calcium Level 8.9 mg/dl (8.5-10.1) Total Bilirubin 0.3 mg/dl (0.2-1) Direct Bilirubin < 0.1 mg/dl (0-0.2) Aspartate Amino Transf (AST/SGOT) 32 U/L (15-37) Alanine Aminotransferase (ALT/SGPT) 49 U/L (12-78) Alkaline Phosphatase 90 U/L (45-117) Total Creatine Kinase 117 U/L (26-192) Creatine Kinase MB 0.6 ng/ml (0.5-3.6) Creatine Kinase MB Ratio 0.5 (0-3.0) Troponin I < 0.015 ng/ml (0-0.045) Total Protein 7.8 gm/dl (6.4-8.2) Albumin 3.6 gm/dl (3.4-5.0) Lipase 231 U/L (73-393) Laboratory results as stated above per my review. Medications Administered Medications (Trade) Dose Ordered Sig/Mayte Route Start Time Stop Time Status Last Admin Dose Admin Ketorolac Tromethamine (Toradol Inj) 30 mg NOW STAT IV 11/05/16 18:21 11/05/16 18:22 DC 11/05/16 18:54 30 MG ECG Indication: SOB/dyspnea Rate (beats per minute): 91 Rhythm: normal sinus Findings: no ectopy, other (no acute injury) ED Course 1815: Previous medical records were reviewed. The patient was evaluated in room A12A. A complete history and physical examination was performed. 1820: Ordered Toradol Inj 30 mg IV. 1947: I reevaluated the patient and she is resting comfortably. I discussed the exam findings with her and I discussed the treatment plan. She verbalized complete understanding agreement. She is ready to go home. Medical Decision Differentials considered include acute myocardial infarction, acute coronary syndrome, myocarditis, pericarditis, pericardial effusions /tamponade, esophageal perforation, pulmonary embolism, pneumonia, pneumothorax, cardiomyopathy, congestive heart, anemia, and COPD/asthma exacerbation. Patient was found to have a slightly elevated blood pressure due to circumstances. I do not believe that the patient requires hypertension monitoring. Medication Reconciliation: I attest that I have personally reviewed the patient' s current medication list. This is a 31-year-old female who presents to the ED with a chief complaint of chest discomfort. The patient also was experiencing some shortness of breath and increased pain with breathing. She has a history of PE and she is currently on Eliquis. The patient's exam reveals that she is slightly anxious. She denies any recent illness, fever or cough. Her symptoms started this evening around 4:30 PM. Her physical exam was unremarkable. Vital signs are stable. EKG shows a normal sinus rhythm. CBC is normal, urine did not show infection. Chest x-ray was negative for acute disease. Complete metabolic panel is normal, troponin is negative. D-dimer was slightly elevated at 720. The patient was treated with IV Toradol. On reassessment, she is feeling much better. Her discomfort has mostly resolved. She is felt to be stable for discharge and outpatient follow-up. Impression Primary Impression: Pleurisy Scribe Attestation The scribe's documentation has been prepared under my direction and personally reviewed by me in its entirety. I confirm that the note above accurately reflects all work, treatment, procedures, and medical decision making performed by me. Departure Information Dispostion Home / Self-Care Referrals No Doctor, Assigned (PCP) Forms HOME CARE DOCUMENTATION FORM, IMPORTANT VISIT INFORMATION, WORK / SCHOOL INSTRUCTIONS Patient Instructions My [facility] Additional Instructions Take Tylenol/ibuprofen as needed for discomfort. Follow-up with your doctor for further care and evaluation in 1-2 days. Return to the emergency department for worsening or new symptoms or any concerns. You have been examined and treated today on an emergency basis only. This is not a substitute for, or an effort to provide, complete comprehensive medical care. It is impossible to recognize and treat all injuries or illnesses in a single emergency department visit. It is therefore important that you follow up closely with your doctor. Call as soon as possible for an appointment.
[2016-11-05 20:03] VITALS: BP 144/89; PULSE 70; O2SAT 100
== END 2016-11-05 20:14 | disposition home or self-care (01) ==
LOC: C.EDB 17:33 → C.EDA 20:14
DX: R09.1 Pleurisy (principal); Z86.711 Personal history of pulmonary embolism; F41.9 Anxiety disorder, unspecified; K63.9 Disease of intestine, unspecified; Z87.01 Personal history of pneumonia (recurrent); Z80.9 Family history of malignant neoplasm, unspecified; Z83.79 Family history of other diseases of the digestive system; Z82.49 Family history of ischemic heart disease and other diseases of the circulatory system; Z79.01 Long term (current) use of anticoagulants; Z79.899 Other long term (current) drug therapy

== ENCOUNTER → 2017-02-24 | Outpatient (CLI) | payer BC ==
[~2017-02-24] MED LIST changes: +ACET-1256 PO; -KETO10TA PO; +OPTIRAY 320 IV PRN
--- NOTE | 2017-02-24 10:56 | DIAGNOSTIC IMAGING REPORT ---
ABD/PELVIS IV AND ORAL CONT CT DOSE: 1101.35 mGy.cm HISTORY: Pain N80.9 [id number] Abdominal pain3 weeks from [id number] TECHNIQUE: Multiaxial CT images of the abdomen and pelvis were performed following the use of intravenous and oral contrast. A dose lowering technique was utilized adhering to the principles of ALARA. COMPARISON STUDY: 12/08/2013 FINDINGS: The lung bases are clear. The liver, spleen, gallbladder, pancreas, kidneys, and adrenal glands are within normal limits. No bowel wall thickening or obstruction. The pelvic organs are unremarkable. No suspicious lytic or blastic osseous lesions. The appendix is normal. IMPRESSION: No significant abnormality identified within the abdomen or pelvis. The above report was generated using voice recognition software. It may contain grammatical, syntax or spelling errors. Electronically signed by: Ayo Gomes M.D. 02/24/2017 10:55 AM Dictated Date/Time: 02/24/2017 10:46 AM
== END | disposition home or self-care (01) ==
LOC: C.CTS 09:54
PROVIDERS: ATTEND Physician Assistant
DX: N80.9 Endometriosis, unspecified (principal); R10.9 Unspecified abdominal pain

== ENCOUNTER 2017-05-12 09:02 | Emergency (ER) | payer OTHER ==
[~2017-05-12] VITALS: Ht 162.6 cm; Wt 110.4 kg
[~2017-05-12 09:02] MED LIST changes: +ACET-749 PO; +ATARAX PO; +ATV/1 PO; -DIPH1TAB PO; +DIPH1TAB87 PO; -HYDR-5688 PO; +MEDR150I IM; -OPTIRAY 320 IV PRN
[2017-05-12 09:08] VITALS: TEMP 36.5; Ht 162.6 cm; Wt 110.4 kg
--- NOTE | 2017-05-12 09:49 | DIAGNOSTIC IMAGING REPORT ---
CHEST ONE VIEW PORTABLE CLINICAL HISTORY: Syncope. COMPARISON STUDY: Chest radiograph November 05, 2016. FINDINGS: Lung volumes are normal. Lungs are clear. No pneumothorax or pleural effusion is noted. Pulmonary vascularity is normal. Cardiomediastinal silhouette is normal. IMPRESSION: No acute cardiopulmonary findings. Electronically signed by: Gomez Garcia M.D. 05/12/2017 9:48 AM Dictated Date/Time: 05/12/2017 9:45 AM
[2017-05-12] MEDS ORDERED: ONDANSETRON INJ 2 MG/ML 2 ML VIAL IV STA (09:51)
[2017-05-12] MEDS ORDERED: SODIUM CHLORIDE 0.9% 1000ML 1,000 ML IV STA (09:51)
[2017-05-12] MEDS ORDERED: KETOROLAC TROMETHAMINE 30 MG/ML VIAL IV STA (09:51)
[2017-05-12] MEDS ORDERED: AMT50 PO (09:55)
[2017-05-12] MEDS ORDERED: OPTIRAY 320 IV PRN (10:00)
[2017-05-12 11:34] LABS: BASO % 0.4 %; BASO ABS # 0.04 K/uL (0-0.2); EOS % 0.8 %; EOS ABS # 0.07 K/uL (0-0.5); HEMATOCRIT 41.3 % (37-47); HEMOGLOBIN 14.2 g/dL (12.0-16.0); IG# 0.01 K/uL (0.00-0.02); LYMPH % 19.2 %; LYMPH ABS # 1.73 K/uL (1.2-3.4); MEAN CELL VOLUME 85.3 fL (80-100); MEAN CORPUSCULAR HEMOGLOBIN 29.3 pg (25-34); MEAN CORPUSCULAR HGB CONC 34.4 g/dl (32-36); MEAN PLATELET VOLUME 9.4 fL (7.4-10.4); MONO % 6.3 %; MONO ABS # 0.57 K/uL (0.11-0.59); NEUT % 73.2 %; NEUT ABS # 6.57 K/uL (1.4-6.5); PLATELET COUNT 251 K/uL (130-400); RED CELL DISTRIBUTION WIDTH CV 13.3 % (11.5-14.5); WHITE BLOOD COUNT 8.99 K/uL (4.8-10.8)
[2017-05-12 11:46] LABS: PTT PATIENT 23.3 SECONDS (21.0-31.0)
[2017-05-12 11:53] LABS: ALBUMIN 3.6 gm/dl (3.4-5.0); ALT/SGPT 22 U/L (12-78); AST/SGOT 10 U/L (15-37); BLOOD UREA NITROGEN 18 mg/dl (7-18); CALCIUM 8.8 mg/dl (8.5-10.1); CARBON DIOXIDE 23 mmol/L (21-32); CREATININE 0.89 mg/dl (0.60-1.20); GLUCOSE 101 mg/dl (70-99); LIPASE 103 U/L (73-393); POTASSIUM 3.7 mmol/L (3.5-5.1); SODIUM 138 mmol/L (136-145)
[2017-05-12 11:58] LABS: ALKALINE PHOSPHATASE 76 U/L (45-117); TOTAL PROTEIN 7.4 gm/dl (6.4-8.2)
--- NOTE | 2017-05-12 14:06 | DIAGNOSTIC IMAGING REPORT ---
CT ANGIOGRAPHY OF THE CHEST, PULMONARY EMBOLUS PROTOCOL CLINICAL HISTORY: Syncope. History of pulmonary emboli. COMPARISON STUDY: Chest CT October 20, 2016 and chest radiograph performed earlier today. TECHNIQUE: Following IV administration of 103 mL of [id number]-320, helical axial images of the chest were obtained utilizing the pulmonary embolus protocol. Maximal intensity projections and sagittal and coronal reformats were viewed on an independent 3D workstation. IV contrast was administered without complication. A dose lowering technique was utilized adhering to the principles of ALARA. CT DOSE: 594.03 mGycm FINDINGS: No central pulmonary emboli are identified. The embolus burden has significantly diminished since exam of October 20, 2016 with near complete resolution. There is suspected minimal residual thrombus within several left lower lobe segmental pulmonary arteries, best shown on image 148 of 286. This exam is compromised by respiratory motion and suboptimal vascular opacification. The size the heart is normal. There is no pericardial effusion. Central airways are patent. There is no consolidation to suggest pneumonia. There is no pulmonary infarct. Bony thorax and upper abdomen are unremarkable. IMPRESSION: 1. Near complete resolution of pulmonary emboli shown on exam of October 20, 2016. Suspected minimal residual segmental emboli within the left lower lobe. 2. No pulmonary infarct. 3. No consolidation to suggest pneumonia. Electronically signed by: Gomez Garcia M.D. 05/12/2017 2:05 PM Dictated Date/Time: 05/12/2017 1:46 PM
[2017-05-12] MEDS ORDERED: ONDA4TAB65 PO (14:38)
[2017-05-12 14:40] VITALS: BP 122/73; PULSE 88; O2SAT 98
--- NOTE | 2017-05-12 16:08 | EMERGENCY ROOM VISIT NOTE ---
History Report prepared by Beatrice: Bernard Field Under the Supervision of: Dr. Kam Dia D.O. First contact with patient: 09:25 Chief Complaint: ABDOMINAL PAIN Stated Complaint: DIARRHEA ALL AM, FAINTED @ OFFICE BAD AB PAIN Nursing Triage Summary: I wasnt feeling well at work today. I passed out while working. I have a lot of medical issues. I live alone and didnt want to just go home. I feel better now then I did. Having diarrhea and belly pain for the past couple days History of Present Illness The patient is a 31 year old female who presents to the Emergency Room with complaints of a syncopal episode that occurred this morning. She says that she started having abdominal cramping and diarrhea this morning. She states that she was in the restroom when she suddenly felt cold, and became soaked in sweat. She adds that she was nauseous, but has not vomited. The patient notes that she then passed out. She notes that she is feeling somewhat better now. The patient adds that she has had an upper respiratory infection for a week, and was seen by her family doctor, who prescribed the patient a Z-pack as well as Prednisone. The patient states that today is her last day of the Z-pack. She says that her symptoms with the URI included a cough and runny nose. She notes that she has been getting a bit better, but still has a cough, and she had some bloody sputum yesterday, which has since resolved. The patient adds that she had bilateral pulmonary emboli in October, and is still on Eliquis. She has not missed any doses. The patient states that she is still having pleuritic chest pain that is mostly unchanged. She adds that she has endometriosis, and had her Estrogen stopped. Source of History: patient Onset: This morning Position: other (global - syncope) Timing: other (episode) Associated Symptoms: + LOC, + diaphoresis, + cough (with runny nose - URI), + nausea, + abdominal pain (cramping), + diarrhea, No chest pain (no worsned), No vomiting Review of Systems See HPI for pertinent positives & negatives. A total of 10 systems reviewed and were otherwise negative. Past Medical & Surgical Medical Problems: (1) Anxiety (2) Bronchitis (3) Endometriosis (4) IBD (inflammatory bowel disease) (5) Pneumonia Family History Cancer Gallbladder disease Heart disease Hypertension Social History Smoking Status: Never Smoker Alcohol Use: none Drug Use: none Marital Status: Housing Status: lives alone Occupation Status: employed Current/Historical Medications Scheduled Acetaminophen (Tylenol), 1,000 MG PO BID Amitriptyline Hcl (Elavil), 20 MG PO DAILY Apixaban (Eliquis), 5 MG PO BID Diphenhydramine Hcl (Benadryl Allergy), 25 MG PO DAILY Medroxyprogesterone Acetate (C (Depo-Provera Contraceptiv), 1 ML IM Q3 MONTHS Sertraline (Zoloft), 200 MG PO DAILY [Atarax], 10 MG PO PRN Scheduled PRN Acetaminophen/Codeine (Tylenol W/Codeine #3), 1 TAB PO HS PRN for Pain Lorazepam (Ativan), 1 MG PO for PRN Ondansetron Hcl (Zofran), 1 TAB PO Q6H PRN for Nausea Allergies Coded Allergies: Oxycodone (Unverified Allergy, Unknown, ITCHINESS, 05/12/17) Sulfa Antibiotics (Unverified Allergy, Unknown, SWELLING, 05/12/17) Morphine (Unverified Adverse Reaction, Unknown, HYPOTENSION, 05/12/17) Physical Exam Vital Signs Date Time Temp Pulse Resp B/P (MAP) Pulse Ox O2 Delivery O2 Flow Rate FiO2 05/12/17 14:40 88 16 122/73 98 Room Air 05/12/17 13:35 86 05/12/17 12:17 81 20 123/72 100 05/12/17 10:55 75 05/12/17 10:52 72 107/77 05/12/17 09:28 110/74 05/12/17 09:08 36.5 97 18 99 Room Air Physical Exam GENERAL: Sitting up in bed, alert, disheveled, no acute distress, nontoxic EYE EXAM: normal conjunctiva. PERRL and EOM's intact. OROPHARYNX: no exudate, no erythema, lips, buccal mucosa, and tongue normal and mucous membranes are moist NECK: supple, no nuchal rigidity, no adenopathy, non-tender LUNGS: Clear to auscultation. Normal chest wall mechanics HEART: no murmurs, S1 normal and S2 normal ABDOMEN: abdomen soft, non-tender, normo-active bowel sounds, no masses, no rebound or guarding. BACK: Back is symmetrical on inspection and there is no deformity, no midline tenderness, no CVA tenderness. SKIN: no rashes and no bruising UPPER EXTREMITIES: upper extremities are grossly normal. LOWER EXTREMITIES: No pitting edema. Calves are equal bilateral. NEURO EXAM: Normal sensorium, cranial nerves II-XII intact, normal speech, no weakness of arms, no weakness of legs. No drift. Finger to nose intact. Gross sensation intact. Medical Decision & Procedures ER Provider Diagnostic Interpretation: Radiology results as stated below per my review and the radiologist's interpretation: CHEST ONE VIEW PORTABLE CLINICAL HISTORY: Syncope. COMPARISON STUDY: Chest radiograph November 05, 2016. FINDINGS: Lung volumes are normal. Lungs are clear. No pneumothorax or pleural effusion is noted. Pulmonary vascularity is normal. Cardiomediastinal silhouette is normal. IMPRESSION: No acute cardiopulmonary findings. Electronically signed by: Gomez Garcia M.D. 05/12/2017 9:48 AM Dictated Date/Time: 05/12/2017 9:[address] ANGIOGRAPHY OF THE CHEST, PULMONARY EMBOLUS PROTOCOL CLINICAL HISTORY: Syncope. History of pulmonary emboli. COMPARISON STUDY: Chest CT October 20, 2016 and chest radiograph performed earlier today. TECHNIQUE: Following IV administration of 103 mL of [id number]-320, helical axial images of the chest were obtained utilizing the pulmonary embolus protocol. Maximal intensity projections and sagittal and coronal reformats were viewed on an independent 3D workstation. IV contrast was administered without complication. A dose lowering technique was utilized adhering to the principles of ALARA. CT DOSE: 594.03 mGycm FINDINGS: No central pulmonary emboli are identified. The embolus burden has significantly diminished since exam of October 20, 2016 with near complete resolution. There is suspected minimal residual thrombus within several left lower lobe segmental pulmonary arteries, best shown on image 148 of 286. This exam is compromised by respiratory motion and suboptimal vascular opacification. The size the heart is normal. There is no pericardial effusion. Central airways are patent. There is no consolidation to suggest pneumonia. There is no pulmonary infarct. Bony thorax and upper abdomen are unremarkable. IMPRESSION: 1. Near complete resolution of pulmonary emboli shown on exam of October 20, 2016. Suspected minimal residual segmental emboli within the left lower lobe. 2. No pulmonary infarct. 3. No consolidation to suggest pneumonia. Electronically signed by: Gomez Garcia M.D. 05/12/2017 2:05 PM Dictated Date/Time: 05/12/2017 1:46 PM Laboratory Results 05/12/17 11:14 Red Blood Count 4.84, Mean Corpuscular Volume 85.3, Mean Corpuscular Hemoglobin 29.3, Mean Corpuscular Hemoglobin Concent 34.4, Mean Platelet Volume 9.4, Neutrophils (%) (Auto) 73.2, Lymphocytes (%) (Auto) 19.2, Monocytes (%) (Auto) 6.3, Eosinophils (%) (Auto) 0.8, Basophils (%) (Auto) 0.4, Neutrophils # (Auto) 6.57, Lymphocytes # (Auto) 1.73, Monocytes # (Auto) 0.57, Eosinophils # (Auto) 0.07, Basophils # (Auto) 0.04 05/12/17 11:12 Test 05/12/17 09:18 05/12/17 11:12 05/12/17 11:13 05/12/17 11:14 Urine Test NEG (NEG) Anion Gap 8.0 mmol/L (3-11) Est Creatinine Clear Calc Drug Dose 109.3 ml/min Estimated GFR () 98.7 Estimated GFR (Non- 85.2 BUN/Creatinine Ratio 19.8 (10-20) Calcium Level 8.8 mg/dl (8.5-10.1) Total Bilirubin 0.5 mg/dl (0.2-1) Direct Bilirubin 0.1 mg/dl (0-0.2) Aspartate Amino Transf (AST/SGOT) 10 U/L (15-37) Alanine Aminotransferase (ALT/SGPT) 22 U/L (12-78) Alkaline Phosphatase 76 U/L (45-117) Troponin I < 0.015 ng/ml (0-0.045) Total Protein 7.4 gm/dl (6.4-8.2) Albumin 3.6 gm/dl (3.4-5.0) Lipase 103 U/L (73-393) Prothrombin Time 10.7 SECONDS (9.0-12.0) Prothromb Time International Ratio 1.0 (0.9-1.1) Activated Partial Thromboplast Time 23.3 SECONDS (21.0-31.0) Partial Thromboplastin Ratio 0.9 White Blood Count 8.99 K/uL (4.8-10.8) Red Blood Count 4.84 M/uL (4.2-5.4) Hemoglobin 14.2 g/dL (12.0-16.0) Hematocrit 41.3 % (37-47) Mean Corpuscular Volume 85.3 fL (80-100) Mean Corpuscular Hemoglobin 29.3 pg (25-34) Mean Corpuscular Hemoglobin Concent 34.4 g/dl (32-36) Platelet Count 251 K/uL (130-400) Mean Platelet Volume 9.4 fL (7.4-10.4) Neutrophils (%) (Auto) 73.2 % Lymphocytes (%) (Auto) 19.2 % Monocytes (%) (Auto) 6.3 % Eosinophils (%) (Auto) 0.8 % Basophils (%) (Auto) 0.4 % Neutrophils # (Auto) 6.57 K/uL (1.4-6.5) Lymphocytes # (Auto) 1.73 K/uL (1.2-3.4) Monocytes # (Auto) 0.57 K/uL (0.11-0.59) Eosinophils # (Auto) 0.07 K/uL (0-0.5) Basophils # (Auto) 0.04 K/uL (0-0.2) RDW Standard Deviation 41.0 fL (36.4-46.3) RDW Coefficient of Variation 13.3 % (11.5-14.5) Immature Granulocyte % (Auto) 0.1 % Immature Granulocyte # (Auto) 0.01 K/uL (0.00-0.02) Laboratory results per my review. Medications Administered Medications (Trade) Dose Ordered Sig/Mayte Route Start Time Stop Time Status Last Admin Dose Admin Sodium Chloride 1,000 ml @ 999 mls/hr Q1H1M STAT IV 05/12/17 09:51 05/12/17 10:51 DC 05/12/17 11:09 999 MLS/HR Ondansetron HCl (Zofran Inj) 4 mg NOW STAT IV 05/12/17 09:51 05/12/17 09:53 DC 05/12/17 11:10 4 MG Ketorolac Tromethamine (Toradol Inj) 30 mg NOW STAT IV 05/12/17 09:51 05/12/17 09:53 DC 05/12/17 11:10 30 MG ECG Indication: syncope Rate (beats per minute): 86 Rhythm: sinus rhythm Findings: other (normal axis, poor baseline in inferior, normal intervals) ED Course ED COURSE: Vital signs were reviewed and showed normal vitals. The patients medical record was reviewed The above diagnostic studies were performed and reviewed. ED treatments and interventions as stated above. 0945: The patient was evaluated in room B11B. A complete history and physical examination was performed. 0951: Ordered Toradol Inj 30 mg IV, Zofran Inj 4 mg IV, NSS 1000 ml @ 999 mls/ hr IV. 1208: I reevaluated the patient and she is feeling better. 1445: Upon reevaluation, the patient is resting comfortably. I discussed my findings with the patient and she understands and agrees with the treatment plan. Based on the patients age, coexisting illnesses, exam and lab findings the decision to treat as an outpatient was made. The patient remained stable while under my care. The patient appeared well at the time of discharge. Medical Decision Differential diagnosis includes etiologies such as vasovagal event, infection, hypoglycemia, electrolyte abnormalities, cardiac sources, intracerebral event, toxicologic, neurologic, as well as others were entertained. Patient is a 31-year-old female who presents to ER for diarrhea and abdominal cramping associated with cold sweats and nausea. Following these symptoms patient didn't pass out. She also admits to a cough and runny nose. Recently one presented Z-Thong. She is taking THIS. Previous PEs. She does admit to some mild chest discomfort which is pleuritic in nature and has been there fairly persistently/intermittently since this past summer with her PEs. She notes this is her typical pleurisy. EKG was unremarkable. CBC all BMP, LFTs, troponin and lipase is normal. INR was unremarkable. was negative. CT PE shows near complete resolution of her PEs. Patient and family were updated at bedside. Patient was given fluids and Zofran. She felt significant better. Should complete resolution of her symptoms. She was neurologically intact. No signs meningitis or encephalitis on exam. Nothing to suggest a CVA. I do feel this is vasovagal syncopal he. Did not CT head based on history and exam. Patient was updated bedside. She was discharged to follow- up with PCP as an outpatient. Discussed with Pt concerning signs and symptoms to watch out for. Pt was instructed to follow up with their PCP and discussed with the patient their option to return to the ED at anytime for persistent or worsening symptoms. The appropriate anticipatory guidance and out-patient management, including indications for return to the emergency department, were explained at length to the patient and understood. Medication Reconcilliation Current Medication List: was personally reviewed by me Blood Pressure Screening Patient's blood pressure: Normal blood pressure Impression Primary Impression: Vasovagal syncope Additional Impression: Syncope Scribe Attestation The scribe's documentation has been prepared under my direction and personally reviewed by me in its entirety. I confirm that the note above accurately reflects all work, treatment, procedures, and medical decision making performed by me. Departure Information Dispostion Home / Self-Care Prescriptions Ondansetron Hcl (ZOFRAN) 4 Mg Tab 1 TAB PO Q6H Y for Nausea, #10 TAB 0 Refills Prov: Kam Dia, DO 05/12/17 Referrals Pradip Pal MD (PCP) Forms Call Back Authorization, HOME CARE DOCUMENTATION FORM, IMPORTANT VISIT INFORMATION Patient Instructions ED Diarrhea Viral, ED Syncope Vasovagal, My [facility] Additional Instructions Please follow up with your primary care doctor with in the next 24 hours. Any worsening of your symptoms, please return to the ED immediately. This includes any fevers greater than 100.4, worsening pain, chest pain, shortness breath, persistent nausea, vomiting, unable to eat or drink, or any other concerning signs or symptoms from your standpoint. Please note drive for the next 24 hours. Your given a prescription for Zofran. Please take this as needed for nausea and vomiting. Problem Qualifiers Additional Impression: Syncope Syncope type: unspecified Qualified Codes: R55 - Syncope and collapse
== END 2017-05-12 14:54 | disposition home or self-care (01) ==
LOC: C.EDB 09:04
DX: R55 Syncope and collapse (principal); F41.9 Anxiety disorder, unspecified; K58.9 Irritable bowel syndrome, unspecified; Z79.899 Other long term (current) drug therapy; Z88.2 Allergy status to sulfonamides; Z88.5 Allergy status to narcotic agent; Z80.9 Family history of malignant neoplasm, unspecified; Z83.79 Family history of other diseases of the digestive system; Z82.49 Family history of ischemic heart disease and other diseases of the circulatory system

== ENCOUNTER 2017-11-13 08:03 | Observation (INO) | payer OTHER ==
[2017-10-26 11:37] VITALS: Ht 165.1 cm; Wt 113.6 kg
--- NOTE | 2017-11-02 15:01 | PAT Medication Instructions ---
Service Date Nov 02, 2017. Current Home Medication List Acetaminophen (Tylenol), 1,000 MG PO BID Acetaminophen/Codeine (Tylenol W/Codeine #3), 1 TAB PO HS PRN for Pain Diphenhydramine Hcl (Benadryl Allergy), 25 MG PO PRN Epinephrine (Epipen), 0.3 MG IM UD Ibuprofen (Advil), 400 MG PO PRN Lorazepam (Ativan), 1 MG PO for PRN Medroxyprogesterone Acetate (C (Depo-Provera Contraceptiv), 1 ML IM Q3 MONTHS Sertraline (Zoloft), 200 MG PO QAM [Atarax], 10 MG PO PRN Medication Instructions For Your Scheduled Surgery - Check with surgeon for instructions: Medroxyprogesterone Acetate (C (Depo-Provera Contraceptiv), 1 ML IM Q3 MONTHS Ibuprofen (Advil), 400 MG PO PRN - Continue as directed if needed: Epinephrine (Epipen), 0.3 MG IM UD - Hold the following medications the morning of surgery: Diphenhydramine Hcl (Benadryl Allergy), 25 MG PO PRN - Take the following medications the morning of surgery with a sip of water: Acetaminophen (Tylenol), 1,000 MG PO BID (okay to take up to4 hours prior to surgery if needed) Acetaminophen/Codeine (Tylenol W/Codeine #3), 1 TAB PO HS PRN for Pain(okay to take up to4 hours prior to surgery if needed) Lorazepam (Ativan), 1 MG PO for PRN (if needed) Sertraline (Zoloft), 200 MG PO QAM [Atarax], 10 MG PO PRN (if needed) - Take the following medications as scheduled the night before surgery: [Atarax], 10 MG PO PRN (if needed) Lorazepam (Ativan), 1 MG PO for PRN (if needed) Diphenhydramine Hcl (Benadryl Allergy), 25 MG PO PRN (if needed) Acetaminophen (Tylenol), 1,000 MG PO BID Acetaminophen/Codeine (Tylenol W/Codeine #3), 1 TAB PO HS PRN for Pain (if needed) If you have any questions please call us at [phone] or [phone] or [phone]
[2017-11-02 15:54] LABS: BASO % 0.6 %; BASO ABS # 0.04 K/uL (0-0.2); EOS % 1.5 %; EOS ABS # 0.11 K/uL (0-0.5); HEMATOCRIT 38.2 % (37-47); HEMOGLOBIN 13.4 g/dL (12.0-16.0); IG# 0.01 K/uL (0.00-0.02); LYMPH % 46.6 %; LYMPH ABS # 3.37 K/uL (1.2-3.4); MEAN CORPUSCULAR HEMOGLOBIN 29.5 pg (25-34); MEAN CORPUSCULAR HGB CONC 35.1 g/dl (32-36); MEAN PLATELET VOLUME 9.3 fL (7.4-10.4); MONO % 4.8 %; MONO ABS # 0.35 K/uL (0.11-0.59); NEUT % 46.4 %; NEUT ABS # 3.35 K/uL (1.4-6.5); PLATELET COUNT 296 K/uL (130-400); RED CELL DISTRIBUTION WIDTH SD 39.4 fL (36.4-46.3); WHITE BLOOD COUNT 7.23 K/uL (4.8-10.8)
[2017-11-02 16:02] LABS: CREATININE 0.85 mg/dl (0.60-1.20); POTASSIUM 3.7 mmol/L (3.5-5.1)
[2017-11-13] VITALS (8 sets, daily range): BP systolic 126–155; BP diastolic 79–90; PULSE 67–84; TEMP 36.6–36.7; O2SAT 97–99
[~2017-11-13] VITALS: Ht 165.1 cm; Wt 113.6 kg
[~2017-11-13 08:03] MED LIST changes: -ACET-749 PO; +ACET300T3 PO; -APIX1TAB3 PO; +CEFAZOLIN 2000MG IV PUSH 15 ML IV SCH; +EPP3/2 IM; +IBUP-1050 PO; +LACTATED RINGER'S 1000ML 1,000 ML IV SCH
[2017-11-13] MEDS ORDERED: ATROPINE SULFATE 0.1 MG/ML 5ML SYR IV PRN (08:30)
[2017-11-13] MEDS ORDERED: LABETALOL HCL IV 5 MG/ML 20ML IV PRN (08:30)
[2017-11-13] MEDS ORDERED: MEPERIDINE HCL 25 MG/ML CARP IV PRN (08:30)
[2017-11-13] MEDS ORDERED: ONDANSETRON INJ 2 MG/ML 2 ML VIAL IV PRN ×2 (08:30→10:15)
[2017-11-13] MEDS ORDERED: EpHEDrine SULFATE INJ 50 MG/ML AMP IV PRN (08:30)
[2017-11-13] MEDS ORDERED: HYDROmorphone INJ 1 MG/ML SYR IV PRN (08:30)
--- NOTE | 2017-11-13 09:17 | History & Physical Bridge Note ---
H&P Re-Evaluation Bridge Note: I have examined the patient, reviewed the History & Physical and in the interval since the performance of the History & Physical I have noted the following changes of clinical significance: No changes noted
[2017-11-13] MEDS ORDERED: LACTATED RINGER'S 1000ML 1,000 ML IV SCH (10:13)
[2017-11-13] MEDS ORDERED: KETOROLAC TROMETHAMINE 30 MG/ML VIAL IV. PRN (10:15)
[2017-11-13] MEDS ORDERED: ACETAMINOPHEN 325 MG TAB PO PRN (10:15)
[2017-11-13] MEDS ORDERED: OXYCODONE/ACETAMINOPHEN 5-325 TAB PO PRN ×2 (10:15)
[2017-11-13] MEDS ORDERED: MEPERIDINE HCL 50 MG/ML CARP IV PRN ×2 (10:15)
[2017-11-13] MEDS ORDERED: IBUPROFEN 600 MG TAB PO PRN (10:15)
--- NOTE | 2017-11-13 10:15 | Discharge Instructions ---
Discharge Instructions Date of Service Nov 13, 2017. Visit Reason for Visit: Endometriosis Discharge Discharge Diagnosis / Problem: Endometriosis Discharge Goals Goal(s): Specific goals Activity Recommendations Activity Limitations: per Instructions/Follow-up section Anesthesia . Post Anesthesia Instructions: If you have had General Anesthesia or IV Sedation: * Do not drive today. * Resume driving when surgeon permits. * Do not make important decisions or sign legal documents today. * Call surgeon for: 1. Temperature elevations greater than 101 degrees F. 2. Uncontrollable pain. 3. Excessive bleeding. 4. Persistent nausea and vomiting. 5. Medication intolerance (nausea, vomiting or rash). * For nausea and vomiting use only clear liquids such as: tea, soda, bouillon until nausea subsides, then gradually increase diet as tolerated. * If you have any concerns or questions, call your surgeon's office. If physician is unavailable and it is an emergency, call 911 or go to the nearest emergency room. . Instructions / Follow-Up Instructions / Follow-Up POST OPERATIVE: BOWEL FUNCTION/MEDICATIONS: 1. Constipation pain and discomfort are the most common complaints 5-7 days after surgery. Points 2-6 address the things that can help. 2. Chewing gum can help stimulate the gut and help improve digestion and motility. 3. Milk of Magnesia 1-2 times per day until return of bowel function. 4. Colace is a stool softener that helps. Taking this 2-3 times per day until bowel function returns to normal is highly recommended. 5. Dulcolax is a laxative that may be used if several days have passed without a bowel movement. Alternatively Miralax may be used daily instead. 6. Drink plenty of fluids as this will also reduce constipation. 7. Narcotic pain medications will be prescribed by your physician. They are safe to use and we encourage you to use them. If you are not allergic, ibuprofen will also be prescribed. Many patients will be able to transition off of the narcotic medications to ibuprofen by postoperative day 3. ACTIVITY RECOMMENDATIONS: 1. Get plenty of rest and listen to your body. If you are tired, take a nap. 2. You may shower, but do not take a tub bath until you see your doctor at the 2 week post operative visit. 3. Absolutely NO intercourse and nothing in the vagina until you are examined by your doctor at the 6 week visit. At that visit it will be determined when such activities can be resumed. This can range from 6-12 weeks after your surgery depending on healing time. 4. The main physical activity in the first week should be walking. By the second week you can slowly increase activity. There are no limits on walking up and down stairs. 5. Do not lift more than 5-10 lbs for 4 weeks. Remember the "one-handed rule", i.e. if you can lift something with only one hand it's likely okay. 6. Minimize reaming machine operator for plastic like vacuuming and exercising for 4 weeks. "Overdoing it" can lead to incisions not healing, pain and vaginal bleeding , so again, listen to your body. 7. Driving can be resumed when you feel able. Do not drive within 24 hours of taking a narcotic medication. EXPECTATIONS: 1. Vaginal spotting, bleeding and discharge are common after surgery. There may even be an odor to the discharge which is often related to sutures used in the vagina. If you experience heavy vaginal bleeding, call the office number day or night [phone]. 2. Bladder discomfort is common after surgery from the catheter. This usually resolves in 1-2 weeks. 3. By the end of the 3rd or 4th week you should be feeling much better. It may take up to 6 weeks for your energy levels to return to normal. 4. Narcotic medications have side effects such as: dizziness, headache, nausea and/or vomiting. If you suspect your pain medication is causing problems, call our office and we may be able to prescribe an alternate medication. 5. The skin incisions are often covered with a liquid bandage. This will gradually peel off over time. CALL THE OFFICE IF YOU HAVE ANY OF THE FOLLOWIN. Temperature of 101 degrees or higher. 2. Severe abdominal or pelvic pain not relieved by pain medication. 3. Persistent nausea or vomiting. 4. Increased pain with urination or difficulty urinating. 5. Bright red bleeding that soaks more than 1 pad per hour. CONTACT PHONE NUMBERS: Main Office: [phone] Surgical Nurse: [phone] extension [phone] FOLLOW-UP: Post-Operative Appointments: * Individual instructions will have been given about the timing of your first examination, but this is usually at the end of the second week home. * You will need to call the office at soon after discharge to make the appointment for your post-op check-up if it has not already been scheduled. * Additional information regarding activity, sexual intercourse and when to return to work will be given at this appointment. WE WISH YOU A SPEEDY RECOVERY! Diet Recommendations Recommended Home Diet: resume previous diet Pending Studies Studies pending at discharge: no Medical Emergencies . Who to Call and When: Medical Emergencies: If at any time you feel your situation is an emergency, please call 911 immediately. . Non-Emergent Contact Non-Emergency issues call your: Primary Care Provider . . "Provider Documentation" section prepared by Mary Hernandez. . [place] Drug Monitoring Program Search Results: patient reviewed within database, no issues identified
[2017-11-13] MEDS ORDERED: OXYC-57 PO (10:16)
[2017-11-13] MEDS ORDERED: MIDAZOLAM HCL 1 MG/ML 2ML VIAL ONE ×2 (10:29)
[2017-11-13] MEDS ORDERED: FENTANYL CITRATE INJ 50 MCG/1 ML 2 ML VIAL ONE ×4 (10:30→12:02)
[2017-11-13] MEDS ORDERED: IV FLUIDS COMPLETED PRN (11:30)
[2017-11-13] MEDS ORDERED: ROCURONIUM BROMIDE 10 MG/ML 5 ML VIAL ONE (11:59)
[2017-11-13] MEDS ORDERED: PROPOFOL IV EMULSION 10 MG/ML 20 ML VIAL ONE (11:59)
[2017-11-13] MEDS ORDERED: NEOSTIGMINE METHYLSULFATE 5 MG/5 ML SYR ONE (11:59)
[2017-11-13] MEDS ORDERED: ONDANSETRON INJ 2 MG/ML 2 ML VIAL ONE (11:59)
[2017-11-13] MEDS ORDERED: GLYCOPYRROLATE INJ 0.2 MG/ML VIAL ONE (12:00)
[2017-11-13] MEDS ORDERED: LIDOCAINE HCL 2% 2 ML VIAL (20MG/ML) ONE (12:01)
--- NOTE | 2017-11-13 12:11 | [facility] Post Operative Brief Note ---
Immediate Operative Summary Operative Date Nov 13, 2017. Pre-Operative Diagnosis Endometriosis, failed conservative measures Post-Operative Diagnosis Endometriosis, failed conservative measures Procedure(s) Performed Robotic Assisted Total Laparoscopic Hysterectomy with Bilateral Salpingo-Oophorectomy, Cystoscopy Surgeon Dr. Mary Hernandez Representative Surgeon(s) None Estimated Blood Loss 15 ml Findings Consistent with Post-Op Diagnosis Specimens A: Uterus, cervix, Bilateral falliopian tubes and bilateral ovaries Drains None Anesthesia Type General Complication(s) none Disposition Accompanied Pt To Recover: no Disposition: Recovery Room / PACU
[2017-11-13] MEDS: FENTANYL CITRATE INJ 50 MCG/1 ML 2 ML VIAL IV PRN ×6 (12:38→13:21)
--- NOTE | 2017-11-13 13:34 | Anesthesiology Progress Note ---
Anesthesia Post Op Note Date & Time Nov 13, 2017 at 13:34 Vital Signs Pain Intensity: 3 Vital Signs Past 12 Hours Date Time Temp Pulse Resp B/P (MAP) Pulse Ox O2 Delivery O2 Flow Rate FiO2 11/13/17 13:27 36.4 72 20 132/85 (104) 98 Nasal Cannula 2 11/13/17 13:26 132/85 11/13/17 13:25 72 19 11/13/17 13:25 74 19 98 11/13/17 13:21 135/82 11/13/17 13:20 73 21 11/13/17 13:20 21 11/13/17 13:16 134/88 11/13/17 13:15 68 21 11/13/17 13:15 68 21 99 11/13/17 13:11 129/86 11/13/17 13:10 63 19 98 11/13/17 13:10 62 19 11/13/17 13:06 133/80 11/13/17 13:05 79 17 11/13/17 13:05 77 17 97 11/13/17 13:01 129/81 11/13/17 13:00 62 17 11/13/17 13:00 62 17 94 11/13/17 12:59 131/82 11/13/17 12:55 63 19 11/13/17 12:55 64 19 95 11/13/17 12:50 65 28 11/13/17 12:50 65 28 96 11/13/17 12:45 56 20 95 11/13/17 12:45 56 20 11/13/17 12:40 57 20 144/97 (119) 95 Oxymask 10 11/13/17 12:30 36.7 66 16 149/96 (123) 92 Oxymask 10 11/13/17 09:14 36.7 84 18 126/80 (95) 99 Room Air Notes Mental Status: alert / awake / arousable, participated in evaluation Pt Amnestic to Procedure: Yes Nausea / Vomiting: adequately controlled Pain: adequately controlled Airway Patency, RR, SpO2: stable & adequate BP & HR: stable & adequate Hydration State: stable & adequate Anesthetic Complications: no major complications apparent
--- NOTE | 2017-11-13 13:45 | OPERATIVE REPORT ---
DATE OF OPERATION: 11/13/2017 PREOPERATIVE DIAGNOSIS: Endometriosis failed conservative measures. POSTOPERATIVE DIAGNOSIS: Endometriosis failed conservative measures. PROCEDURE: Robotic-assisted total laparoscopic hysterectomy, BSO and cystoscopy. SURGEON: Dr. Hernandez. MELLOWING MACHINE OPERATOR: None. ESTIMATED BLOOD LOSS: 15 mL FINDINGS: Consistent with postoperative diagnosis. SPECIMENS: Uterus, cervix, bilateral fallopian tubes and bilateral ovaries. DRAINS: None. ANESTHESIA: General. COMPLICATIONS: None. DISPOSITION: Stable to recovery room. DESCRIPTION OF PROCEDURE: Phil is a 32-year-old with known severe endometriosis proven by prior multiple laparoscopies and has failed conservative measures. She desires definitive treatment with TLH-BSO. She was brought to the operating room, placed on the table in the dorsal lithotomy position, prepped and draped in standard sterile fashion and a hard time-out was taken prior to proceeding. [place] and VK replaced in the usual manner. Attention was turned to the abdomen where her existing supraumbilical scar was used to make an optical entry to the abdomen which was done without complication. The abdomen was insufflated and with the patient in steep Trendelenburg, under direct visualization, right and left lower quadrant ports were placed. Visualization of the pelvic organs showed scattered endometriotic implants over a arlet surface in the anterior and posterior cul-de-sacs, as well as on the adnexa. A sweep of the abdomen revealed adhesions on the bowels to the pelvic sidewalls bilaterally. The appendix was visualized and normal in caliber, but again was adhesed to the pelvic wall. Procedure began by dissecting into the right retroperitoneal space creating a window around the right IP ligament which was then ligated and divided. The right round ligament was ligated and divided and the right uterine artery was skeletonized and a bladder flap was begun. This exact procedure was repeated on the left side with a retroperitoneal window, ligation of the IP, division of the round ligament and completion of the bladder flap. Once the uterine arteries were ligated and divided bilaterally, circumferential colpotomy was completed and the cervix, uterus, tubes, and ovaries were delivered unblock via the vagina. The V-Loc suture was then used to close the vaginal cuff in the usual running nonlocked manner after which the needle was retrieved via Dictation ends here. I attest to the content of the Intraoperative Record and any orders documented therein. Any exception s are noted below.
[2017-11-13] MEDS ORDERED: NURSING VERBAL MED ORDER ONE (15:30)
[2017-11-13] MEDS ORDERED: HYDROmorphone INJ 0.5 MG/0.5 ML SYR IV PRN (15:30)
[2017-11-13 16:08] LABS: HEMATOCRIT 38.6 % (37-47); HEMOGLOBIN 13.3 g/dL (12.0-16.0)
[2017-11-13] MEDS ORDERED: DOCUSATE SODIUM 100 MG CAP PO SCH (21:00)
--- NOTE | 2017-11-17 08:10 | Discharge Summary ---
Discharge Summary Date of Service Nov 17, 2017. Discharge Summary Admission Date: Nov 13, 2017 at 10:14 Discharge Date: Nov 13, 2017 Discharge Disposition: Home Principal Diagnosis: Hysterectomy for endometriosis Medication Reconciliation New Medications: Oxycodone/Acetaminophen 5MG/325MG (Percocet 5MG/325MG) Tab 1 TABLET PO Q6H PRN for Pain, #30 TAB Continued Medications: Acetaminophen (Tylenol) 500 Mg Tab 1000 MG PO BID, TAB Acetaminophen/Codeine (Tylenol W/Codeine #3) 300 Mg/30 Mg Tab 1 TAB PO HS PRN for Pain, TAB Diphenhydramine Hcl (Benadryl Allergy) 25 Mg Tab 25 MG PO PRN Epinephrine (Epipen) 0.3 Mg/0.3 Ml Inj 0.3 MG IM UD, BOX Ibuprofen (Advil) 200 Mg Tab 400 MG PO PRN, TAB Lorazepam (Ativan) 1 Mg Tab 1 MG PO PRN for PRN, TAB Sertraline (Zoloft) 100 Mg Tab 200 MG PO QAM, TAB [Atarax] () 10 MG PO PRN Discontinued Medications: Medroxyprogesterone Acetate (C (Depo-Provera Contraceptiv) 150 Mg/Ml Inj 1 ML IM Q3 MONTHS LAST DOSE MID SEPTEMBER 2017 Hospital Course Total Time Spent: Less than 30 minutes This includes examination of the patient, discharge planning, medication reconciliation, and communication with other providers. Discharge Instructions Please refer to the electronic Patient Visit Report (Discharge Instructions) for additional information.
== END 2017-11-13 19:29 | disposition home or self-care (01) ==
LOC: C.ACU 08:03 → C.MS4N 10:14 → ENRESERV 13:11
PROVIDERS: ADMIT Obstetrics & Gynecology; ATTEND Obstetrics & Gynecology
DX: N80.9 Endometriosis, unspecified (principal); F41.9 Anxiety disorder, unspecified; F32.9 Major depressive disorder, single episode, unspecified; E66.01 Morbid (severe) obesity due to excess calories; Z68.41 Body mass index [BMI] 40.0-44.9, adult; Z79.899 Other long term (current) drug therapy; Z79.01 Long term (current) use of anticoagulants; Z88.2 Allergy status to sulfonamides; Z88.5 Allergy status to narcotic agent; Z86.718 Personal history of other venous thrombosis and embolism; Z86.711 Personal history of pulmonary embolism
CPT/HCPCS: 58571; S2900